=== PATIENT | female | born 1945 | race Asian ===

== ENCOUNTER 2017-09-13 07:46 | Emergency (ER) | payer OTHER ==
[2017-09-13 08:50] VITALS: BMI 22.2
[2017-09-13] MEDS ORDERED: ACETAMINOPHEN 1000 MG/100 ML VIAL (NON FORMULARY) IVPB ONE (10:02)
[2017-09-13] MEDS ORDERED: MAG HYDROX/AL HYDROX/SIMETH 30 ML UNIT-DOSE CUP PO ONE (10:02)
[2017-09-13] MEDS ORDERED: ONDANSETRON 4 MG/2 ML VIAL IVPB ONE (10:02)
[2017-09-13] MEDS ORDERED: ALBUTEROL SO4 2.5/IPRATROPIUM 0.5 INH SOL 3 ML VIAL.NEB. NEB ONE ×2 (10:09→11:05)
--- NOTE | 2017-09-13 10:12 | PDOC ---
History of Present Illness <Nati Leach - Last Filed: 09/13/17 17:04> - History of Present Illness Initial Comments: 09/13/17 10:50 The patient is a 72 year old female, with a significant past medical history of asthma, who presents to the emergency department with diffuse bodyaches, cough, fevers, and abdominal pain for approximately 2 days. Patient reports her abdominal pain is diffuse, associated with several episodes of nausea and vomiting(nonbloody/nonbilious), but denies diarrhea or constipation. She reports chest burning and shortness of breath as well associated with coughing, but denies any diaphoresis or palpitations. Patient reports she has been taking Motrin and robitussin for her symptoms with minimal relief. She reports a fever , but denies any sore throat, ear ache, chills, headache, or dizziness. She denies any recent travel or sick contacts. Allergies: Penicillins Past Surgical History: Appendectomy Social History: Non smoker. No ETOH or recreational drug use. <Joseph Galindo - Last Filed: 09/13/17 17:18> - General Chief Complaint: Cold Symptoms Stated Complaint: FLU LIKE SYMPTOMS Time Seen by Provider: 09/13/17 09:11 Past History <Nati Leach - Last Filed: 09/13/17 17:04> - Past Medical History COPD: No HTN: Yes - Suicide/Smoking/Psychosocial Hx Smoking History: Never smoked Have you smoked in the past 12 months: No Information on smoking cessation initiated: No Hx Alcohol Use: No Drug/Substance Use Hx: No Substance Use Type: None <Joseph Galindo - Last Filed: 09/13/17 17:18> - Past Medical History Allergies/Adverse Reactions: Allergies Allergy/AdvReac Type Severity Reaction Status Date / Time No Known Allergies Allergy Verified 09/13/17 08:42 Home Medications: Ambulatory Orders Oseltamivir Phosphate 75 mg PO BID #10 capsule 09/13/17 Oseltamivir Phosphate [Tamiflu] 75 mg PO BID #10 capsule 09/13/17 Oseltamivir Phosphate [Tamiflu] 75 mg PO BID #10 capsule 09/13/17 Review of Systems - Review of Systems Comments:: 09/13/17 10:56 "GENERAL/CONSTITUTIONAL: Yes fever. No chills. No weakness. HEAD, EYES, EARS, NOSE AND THROAT: No change in vision. No ear pain or discharge. No sore throat. CARDIOVASCULAR: Yes chest burning. No chest pain or shortness of breath. RESPIRATORY: Yes cough. No wheezing, or hemoptysis. GASTROINTESTINAL: Yes abdominal pain, nausea, vomiting. No diarrhea or constipation. GENITOURINARY: No dysuria, frequency, or change in urination. MUSCULOSKELETAL: Yes diffuse joint pain. No muscle swelling or pain. No neck or back pain. SKIN: No rash NEUROLOGIC: No headache, vertigo, loss of consciousness, or change in strength/ sensation. ENDOCRINE: No increased thirst. No abnormal weight change. HEMATOLOGIC/LYMPHATIC: No anemia, easy bleeding, or history of blood clots. ALLERGIC/IMMUNOLOGIC: No hives or skin allergy." <Joseph Galindo - Last Filed: 09/13/17 17:18> *Physical Exam - Vital Signs Last Vital Signs Temp Pulse Resp BP Pulse Ox 101.4 F H 84 18 130/66 95 09/13/17 07:46 09/13/17 07:46 09/13/17 07:46 09/13/17 07:46 09/13/17 07:46 <Nati Leach - Last Filed: 09/13/17 17:04> - Vital Signs Last Vital Signs Temp Pulse Resp BP Pulse Ox 101.4 F H 84 18 130/66 95 09/13/17 07:46 09/13/17 07:46 09/13/17 07:46 09/13/17 07:46 09/13/17 07:46 - Physical Exam Comments: 09/13/17 10:56 "GENERAL: Febrile. Awake, alert, and fully oriented, in no acute distress HEAD: No signs of trauma EYES: PERRLA, EOMI, sclera anicteric, conjunctiva clear ENT: Auricles normal inspection, hearing grossly normal, nares patent, oropharynx clear without exudates. Moist mucosa NECK: Nontender, no stepoffs, Normal ROM, supple, no lymphadenopathy, JVD, or masses LUNGS: Diffuse wheezing bilaterally. No crackles HEART: Regular rate and rhythm, normal S1 and S2, no murmurs, rubs or gallops ABDOMEN: Diffuse abdominal tenderness. Soft, normoactive bowel sounds, non distended. No guarding, no rebound. No masses EXTREMITIES: Normal range of motion, no edema. No clubbing or cyanosis. No cords, erythema, or tenderness NEUROLOGICAL: Cranial nerves II through XII intact. 5/5 strength and sensation in all extremities, Normal speech, normal gait SKIN: Warm, Dry, normal turgor, no rashes or lesions noted." <Joseph Galindo - Last Filed: 09/13/17 17:18> ED Treatment Course - LABORATORY CBC & Chemistry Diagram: 09/13/17 11:18 09/13/17 11:18 - RADIOLOGY Radiograph Interpretation: 09/13/17 11:04 EXAM: CXR INTERPRETED BY: Dr. Antoine REVIEWED BY: Dr. Galindo IMPRESSION: Bilateral apical pleural thickening with extensive granulomatous changes in upper lobes. No pneumothorax or pleural effusion seen. No evidence of pulmonary consolidations. . EXAM: CT Abdomen and Pelvis INTERPRETED BY: Dr. Miles REVIEWED BY: Dr. Galindo IMPRESSION: A very small amount of free fluid is seen within the left paracolic space at the level of the upper pelvis. A mildly dilated fluid-filled tubular structure seen within the right lower quadrant in the expected region of the appendix. No definite associated acute inflammatory changes are noted. This finding may represent chronic mild distention of the appendiceal lumen (mucocele ) versus chronic appendicitis or partially treated acute/subacute appendicitis. Correlate clinically. 3 mm nonobstructing left renal calculus. A 0.8 cm left renal cortical hypodense focus is seen probably representing a complex benign cyst on a statistical basis. Correlation with 3 month follow-up CT or MRI is essential to document stability and lack of developing pathology. A 6 cm uterine spherical lesion is noted probably representing a degenerated leiomyoma. Findings are seen within the partially imaged lower chest as discussed above. <Nati Leach - Last Filed: 09/13/17 17:04> - LABORATORY CBC & Chemistry Diagram: 09/13/17 11:18 09/13/17 11:18 - RADIOLOGY Radiology Studies Ordered: Category Date Time Status ABDOMEN & PELVIS CT WITH CONTR [CT] Stat CT Scan 09/13/17 10:04 Ordered CHEST PA & LAT [RAD] Stat Radiology 09/13/17 10:03 Ordered <Joseph Galindo - Last Filed: 09/13/17 17:18> Medical Decision Making - Medical Decision Making 09/13/17 10:09 72 F with fever, cough, chest burning, abdominal pain, vomiting. Exam notable for wheezing and diffuse abdominal tenderness. Possible influenza with secondary asthma flare. However, given pt's age and abdominal tenderness, will need CT to r/o acute intra-abdominal process. Pt's chest burning likely 2/2 vomiting. Will obtain EKG and trop to r/o ACS. - Labs, cultures - CXR - CT abd/pelvis - Flu swab - IVF, tylenol - Nebs 09/13/17 12:14 Pt influenza positive. Given duration of symptoms for <2 days, will initiate tamiflu. 09/13/17 16:40 [address] discussion [address] Miles, CTAP appears unremarkable. Pt reassessed - now feels much better. Repeat vitals wnl. Pt clinically stable for DC at this time. 09/13/17 17:[address] shows trace free fluid and tubular structure in RLQ - per convo with Dr. Miles, this is nonspecific. I spoke with the pt, who states that her appendix was taken out decades ago. Pt states that her pain has improved significantly. Abdominal exam at this time benign. Pt instructed to follow up with her primary doctor for repeat examination and possible repeat imaging. <Joseph Galindo - Last Filed: 09/13/17 17:18> *DC/Admit/Observation/Transfer - Attestations Scribe Attestion: 09/13/17 11:04 Documentation prepared by Nati Leach, acting as ophthalmic medical assistant for Joseph Galindo MD. <Nati Leach - Last Filed: 09/13/17 17:04> - Attestations Physician Attestion: 09/13/17 16:44 I, Dr. Joseph Galindo MD, attest that this document has been prepared under my direction and personally reviewed by me in its entirety. I further attest, that it accurately reflects all work, treatment, procedures and medical decision -making performed by me. <Joseph Galindo - Last Filed: 09/13/17 17:18> Diagnosis at time of Disposition: Influenza - Discharge Dispostion Disposition: HOME - Prescriptions Prescriptions: Oseltamivir Phosphate 75 mg PO BID #10 capsule Oseltamivir Phosphate [Tamiflu] 75 mg PO BID #10 capsule Oseltamivir Phosphate [Tamiflu] 75 mg PO BID #10 capsule - Referrals Referrals: STAFF,NOT ON [Primary Care Provider] - - Patient Instructions Printed Discharge Instructions: DI for Influenza -- Adult Additional Instructions: You have the flu. Drink plenty of fluids to stay hydrated. Take the tamiflu as prescribed to reduce the length of your illness. Your CT scan today showed a few abnormalities that need to be followed up. You must see your primary care doctor within 1 week for a re-evaluation and possible repeat imaging. If you experience worsening abdominal pain, vomiting, high or persistent fevers , or any other concerning symptoms, return to the ER immediately. Print Language: Japanese - Post Discharge Activity
[2017-09-13] MEDS ORDERED: MAG HYDROX/AL HYDROX/SIMETH 30 ML UNIT-DOSE CUP ONE ×2 (11:05→11:06)
[2017-09-13] MEDS ORDERED: ACETAMINOPHEN INJECTION 100 ML IVPB ONE (11:05)
[2017-09-13] MEDS ORDERED: ONDANSETRON 4 MG/2 ML VIAL ONE ×2 (11:05→12:22)
[2017-09-13] MEDS ORDERED: FAMOTIDINE 20 MG/50 ML IVPB 20 MG/50 ML MG IVPB ONE ×2 (11:44→11:45)
[2017-09-13 11:47] LABS: VENOUS PC02 51.3 mmHg (38-52); VENOUS PH 7.43 (7.32-7.42)
[2017-09-13 12:08] LABS: ALBUMIN 3.2 g/dl (3.4-5.0); ANION GAP 8 (8-16); BILIRUBIN,TOTAL 0.5 mg/dL (0.2-1.0); BLOOD UREA NITROGEN 13 mg/dL (7-18); CALCIUM 8.1 mg/dL (8.5-10.1); CHLORIDE 92 mmol/L (98-107); CO2 31 mmol/L (21-32); CREATININE 0.7 mg/dL (0.55-1.02); GLUCOSE,RANDOM 125 mg/dL (74-106); SGOT/AST 33 U/L (15-37); SGPT/ALT 19 U/L (12-78); SODIUM 131 mmol/L (136-145); TOT PROT 7.2 g/dl (6.4-8.2)
[2017-09-13 12:10] LABS: BASO % 0.2 % (0-2.0); HEMATOCRIT 39.2 % (32.4-45.2); HEMOGLOBIN 12.7 GM/dL (10.7-15.3); LYMPH % 6.2 % (8-40); MCH 28.6 pg (25.7-33.7); MCHC 32.3 g/dl (32.0-36.0); MEAN CELL VOLUME 88.4 fl (80-96); MONO % 4.8 % (3.8-10.2); NEUT % 88.8 % (42.8-82.8); PLATELET COUNT 112 K/MM3 (134-434); RBC 4.43 M/mm3 (3.60-5.2); RDW 13.3 % (11.6-15.6); WHITE BLOOD COUNT 7.1 K/mm3 (4.0-10.0)
[2017-09-13 12:11] LABS: ALK PHOS 44 U/L (45-117)
[2017-09-13] MEDS ORDERED: OSELTAMIVIR PHOSPHATE 75 MG CAPSULE PO ONE (12:13)
[2017-09-13] MEDS ORDERED: ONDANSETRON 4 MG/2 ML VIAL IVPUSH ONE (12:21)
[2017-09-13] MEDS ORDERED: OSELTAMIVIR PHOSPHATE 75 MG CAPSULE ONE (12:22)
[2017-09-13 12:46] LABS: INR 1.04 (0.82-1.09); PROTHROMBIN TIME (PATIENT) 11.7 SEC (9.98-11.88)
[2017-09-13 12:49] LABS: ACTIVATED PTT 30.9 SECONDS (26.9-34.4)
[2017-09-13 13:50] LABS: URINE APPEARANCE CLEAR; URINE BILIRUBIN NEGATIVE (NEGATIVE); URINE BLOOD NEGATIVE (NEGATIVE); URINE COLOR LTYELLOW; URINE GLUCOSE (UA) NEGATIVE (NEGATIVE); URINE KETONE 1+ (NEGATIVE); URINE LEUK ESTERASE NEGATIVE (NEGATIVE); URINE NITRITE NEGATIVE (NEGATIVE); URINE PROTEIN NEGATIVE (NEGATIVE)
--- NOTE | 2017-09-13 15:07 | EKG ---
Test Reason : Blood Pressure : / mmHG Vent. Rate : 084 BPM Atrial Rate : 084 BPM P-R Int : 156 ms QRS Dur : 098 ms QT Int : 406 ms P-R-T Axes : 078 066 061 degrees QTc Int : 479 ms NORMAL SINUS RHYTHM NORMAL ECG NO PREVIOUS ECGS AVAILABLE Confirmed by ABDIAZIZ BAPTISTE, AUBRIE ([id number]) on 09/13/2017 3:07:26 PM Referred By: Confirmed By:AUBRIE FREED MD
[2017-09-13 17:21] VITALS: TEMP 99.2
[2017-09-13 17:25] VITALS: BP 129/60; PULSE 72
== END 2017-09-13 17:28 | disposition home or self-care (01) ==
LOC: JER 07:46
PROC: 3E033NZ Introduction of Analgesics, Hypnotics, Sedatives into Peripheral Vein, Percutaneous Approach (ICD-10-PCS; principal; 2017-09-13)
PROC: 3E0F7GC Introduction of Other Therapeutic Substance into Respiratory Tract, Via Natural or Artificial Opening (ICD-10-PCS; 2017-09-13)
PROC: 3E033GC Introduction of Other Therapeutic Substance into Peripheral Vein, Percutaneous Approach (ICD-10-PCS; 2017-09-13)
DX: J11.1 Influenza due to unidentified influenza virus with other respiratory manifestations (principal); J45.909 Unspecified asthma, uncomplicated; I10 Essential (primary) hypertension
CPT/HCPCS: 36415; 71046-TC; 74177-TC; 80053; 81003; 82550; 82803; 83605; 84484; 85025; 85610; 85730; 86850; 86900; 86901; 87040; 87086; 87804; 93005; 93010; 94640; 96365; 96375; 96376; 99285-25

== ENCOUNTER 2017-09-14 15:35 | Emergency (ER) | payer OTHER ==
[2017-09-14 15:48] VITALS: BP 134/75; PULSE 71; TEMP 98.9; BMI 27.3
[2017-09-14] MEDS ORDERED: ALBUTEROL SO4 2.5/IPRATROPIUM 0.5 INH SOL 3 ML VIAL.NEB. NEB ONE ×2 (15:49→16:08)
[2017-09-14] MEDS ORDERED: ACETAMINOPHEN 325 MG TABLET (FP) PO ONE (15:49)
--- NOTE | 2017-09-14 15:50 | PDOC ---
Rapid Medical Evaluation Time Seen by Provider: 09/14/17 15:43 Medical Evaluation: Allergies Allergy/AdvReac Type Severity Reaction Status Date / Time No Known Allergies Allergy Verified 09/14/17 15:48 Vital Signs Temp Pulse Resp BP Pulse Ox 98.9 F 71 19 134/75 96 09/14/17 15:46 09/14/17 15:46 09/14/17 15:46 09/14/17 15:46 09/14/17 15:46 09/14/17 15:48 The patient presents with a chief complaint of: Generalized body aches. In our ED yesterday, diagnosed with Flu. Taking Tamiflu I have performed a brief in-person evaluation of this patient; Pertinent physical exam findings: Course lung sounds b/l; afebrile I have ordered the following: CXR, duoneb, tylenol The patient will proceed to the ED for further evaluation.
[2017-09-14] MEDS ORDERED: ACETAMINOPHEN 325 MG TABLET (FP) ONE (16:08)
--- NOTE | 2017-09-14 16:53 | PDOC ---
History of Present Illness - General Chief Complaint: Respiratory Stated Complaint: FLU LIKE SYMPTOMS Time Seen by Provider: 09/14/17 15:43 History Source: Patient Exam Limitations: No Limitations - History of Present Illness Initial Comments: 09/14/17 16:31 Patient return to emergency department with continued complaints of body aches, cough, general malaise, and fevers. Has not taken any medication for any resolve of symptoms and was unable to receive her Tamiflu until today at 1:00. Patient wants to know why she cannot be admitted to the hospital. Discussed patient's symptoms with son who well explained to father and mother the fact that patient has not proceeded with any of the discharge planned to help resolve her illness, her vital signs are not unstable, and she is currently afebrile Timing/Duration: reports: constant Severity: reports: moderate Associated Symptoms: reports: chest pain/soreness, fever/chills, nasal congestion Past History - Travel Traveled outside of the country in the last 30 days: No Close contact w/someone who was outside of country & ill: No - Past Medical History Allergies/Adverse Reactions: Allergies Allergy/AdvReac Type Severity Reaction Status Date / Time No Known Allergies Allergy Verified 09/14/17 15:48 Home Medications: Ambulatory Orders Oseltamivir Phosphate 75 mg PO BID #10 capsule 09/13/17 Oseltamivir Phosphate [Tamiflu] 75 mg PO BID #10 capsule 09/13/17 Oseltamivir Phosphate [Tamiflu] 75 mg PO BID #10 capsule 09/13/17 Albuterol Sulfate Inhaler - [Ventolin HFA Inhaler -] 1 - 2 inh PO Q4H #1 inhaler 09/14/17 Ondansetron [Zofran *Odt*] 4 mg SL PRN PRN #14 od.tablet 09/14/17 COPD: No HTN: Yes - Immunization History Immunization Up to Date: Yes - Suicide/Smoking/Psychosocial Hx Smoking History: Never smoked Have you smoked in the past 12 months: No Information on smoking cessation initiated: No Hx Alcohol Use: No Drug/Substance Use Hx: No Substance Use Type: None Review of Systems - Review of Systems Able to Perform ROS?: Yes Is the patient limited Slovak proficient: Yes Constitutional: Yes: Symptoms Reported, See HPI, Loss of Appetite, Malaise HEENTM: Yes: Symptoms Reported, See HPI, Nose Congestion, Throat Pain Respiratory: Yes: Symptoms reported, See HPI, Cough, Wheezing ABD/GI: Yes: See HPI, Nausea, Vomiting. No: Symptoms Reported Musculoskeletal: Yes: Symptoms Reported, See HPI, Muscle Pain, Muscle Weakness Integumentary: No: Symptoms Reported Neurological: Yes: Symptoms reported, See HPI, Headache All Other Systems: Reviewed and Negative *Physical Exam - Vital Signs Last Vital Signs Temp Pulse Resp BP Pulse Ox 98.9 F 71 19 134/75 96 09/14/17 15:46 09/14/17 15:46 09/14/17 15:46 09/14/17 15:46 09/14/17 15:46 - Physical Exam General Appearance: Yes: Nourished, Appropriately Dressed, Apparent Distress, Mild Distress, Moderate Distress HEENT: positive: SMITHA (glassy ), TMs Normal, Pharynx Normal, Rhinorrhea Neck: positive: Supple. negative: Tender, Lymphadenopathy (R) Respiratory/Chest: positive: Wheezing (bilaterally with moist upper airway rhonchi). negative: Chest Tender, Lungs Clear, Normal Breath Sounds, Labored Respiration Gastrointestinal/Abdominal: positive: Normal Bowel Sounds, Soft. negative: Tender Musculoskeletal: positive: Normal Inspection. negative: CVA Tenderness Extremity: positive: Normal Capillary Refill, Normal Inspection, Normal Range of Motion Integumentary: positive: Dry, Warm, Pale Neurologic: positive: personal caregiver II-XII NML intact, Fully Oriented, Alert, Normal Mood/ Affect, Normal Response, Motor Strength 5/5 Progress Note - Progress Note Progress Note: Past patient's status with and son on the telephone. Understands as patient has taken no medication for relief of any symptoms that is understandable that she states continues to feel malaise sick with body aches, fatigue, and the moist cough. Dr. Galindo whou cared for patient yesterday evaluated patient who reports that in fact looks minimally better than yesterday. Planned for discharged and will add Proventil pump, Zofran for nauseousness and encourage rest, fluids and continuation of antipyretics and Tamiflu. Was repeated to son and medications sent to [facility] where is open later. Medical Decision Making - Medical Decision Making 09/14/17 17:10 1 DuoNeb, Tylenol, patient reports feeling mildly better and breath sounds improved. Understands plan for discharge, and will continue. Also understands to return to emergency department if symptoms persist or worsen. *DC/Admit/Observation/Transfer Diagnosis at time of Disposition: Influenza A - Discharge Dispostion Disposition: HOME Condition at time of disposition: Stable Admit: No - Referrals Referrals: STAFF,NOT ON [Primary Care Provider] - - Patient Instructions Printed Discharge Instructions: Oseltamivir, DI for Influenza -- Adult Additional Instructions: Rest, drink lots of fluids: Teas, water, soups, Pedialyte Saltwater gargles Steamy showers/seem to face break up mucus Old-fashioned treatments help! Avoid contact with others until fevers and cough resolved as this is very contagious Lots of handwashing and good hygiene Continue ngoe-nbq-meliwdi medications for symptomatic relief- NyQuil, DayQuil, TheraFlu or other [id number] medicines Tylenol or Motrin for fever and pain as needed Albuterol pumps 2 puffs 4 times a day for 2 days then as needed for continued cough Take all of Tamiflu as directed: 1 tab every 12 hours for 5 days Take one tablet of Zofran for nauseousness and vomiting, may repeat every 8 hours as needed Followup with private physician in one to 2 days as needed or if worsening Return to emergency department for worsened symptoms, fevers, dehydration Influenza takes between 5 and 7 days for resolution To not participate in any activity, work, or school until fevers and cough are gone for at least one day Print Language: Frisian - Post Discharge Activity
== END 2017-09-14 17:17 | disposition home or self-care (01) ==
LOC: JERFT 15:35
PROC: 3E0F7GC Introduction of Other Therapeutic Substance into Respiratory Tract, Via Natural or Artificial Opening (ICD-10-PCS; principal; 2017-09-14)
DX: J09.X2 Influenza due to identified novel influenza A virus with other respiratory manifestations (principal); R11.2 Nausea with vomiting, unspecified
CPT/HCPCS: 99281-25

== ENCOUNTER 2019-09-01 19:53 | Inpatient (IN) | payer OTHER ==
--- NOTE | 2019-09-01 20:11 | PDOC ---
History of Present Illness - General Stated Complaint: BOWEL AND URINARY PROBLEM Time Seen by Provider: 09/01/19 20:09 - History of Present Illness Initial Comments: 09/01/19 21:45 74 year woman with a history of asthma, HTN, DM and prior appendectomy who presents with 2 days of lower abdominal pain, inability to have a bowel movement and small amount of urine passage. The patient has only been able to drink water and vomits it back up. She is passing gas actively at bedside. She denies any fevers, chest pain, shortness of breath, recent illness or any other symptoms. The patient states that her abdominal pain started before her inability to have a BM. She has no other complaints at bedside. ROS GENERAL/CONSTITUTIONAL: No fever or chills. No weakness. HEAD, EYES, EARS, NOSE AND THROAT: No sore throat. CARDIOVASCULAR: No chest pain or shortness of breath RESPIRATORY: No cough, wheezing, or hemoptysis. GASTROINTESTINAL: + nausea, vomiting, diarrhea, + constipation. GENITOURINARY: No dysuria, frequency, + change in urination. MUSCULOSKELETAL: No joint or muscle swelling or pain. No neck or back pain. SKIN: No rash NEUROLOGIC: No headache, vertigo, loss of consciousness, or change in strength/ sensation. Initial Vital Signs Temp Pulse Resp BP Pulse Ox 99.9 F H 66 18 118/56 L 97 09/01/19 20:09 09/01/19 20:09 09/01/19 20:09 09/01/19 20:09 09/01/19 20:09 PE GENERAL: Awake, alert, and fully oriented, uncomfortable appearing HEAD: No signs of trauma, normocephalic, atraumatic EYES: EOMI, sclera anicteric, conjunctiva clear ENT: oropharynx clear without exudates. Moist mucosa NECK: Normal ROM, supple LUNGS: No distress, speaks full sentences, coarse breath sounds bilaterally HEART: Regular rate and rhythm, normal S1 and S2, no murmurs, rubs or gallops, peripheral pulses normal and equal bilaterally. ABDOMEN: Soft, + BLQ abdominal tenderness. R sided surgical scar No guarding, no rebound. No masses EXTREMITIES : Normal inspection, Normal range of motion, no edema. No clubbing or cyanosis. NEUROLOGICAL: Cranial nerves II through XII grossly intact. Normal speech, normal gait no focal sensorimotor deficits SKIN: Warm, Dry, normal turgor, no rashes or lesions noted MDM DDX including but not limited to: SBO vs constipation with 2/2 urinary retention sepsis w/ tachycardia and rectal temp of 100.4 consider pulm vs urine source vs GI ED Course: EKG: nsr @ 71bpm, no ST segment changes CBCD WBC 4.8 K/mm3 (4.0-10.0) 09/01/19 21:30 RBC 4.17 M/mm3 (3.60-5.2) 09/01/19 21:30 Hgb 12.1 GM/dL (10.7-15.3) 09/01/19 21: Hct 36.8 % (32.4-45.2) 09/01/19 21: MCV 88.2 fl (80-96) 09/01/19 21:30 MCHC 32.9 g/dl (32.0-36.0) 09/01/19 21: RDW 15.0 % (11.6-15.6) D 09/01/19 21:30 Plt Count 96 K/MM3 (134-434) L 09/01/19 21:30 MPV 8.9 fl (7.5-11.1) 09/01/19 21:30 CMP Sodium 136 mmol/L (136-145) 09/01/19 21:30 Potassium 3.1 mmol/L (3.5-5.1) L 09/01/19 21:30 Chloride 99 mmol/L (98-107) 09/01/19 21: Carbon Dioxide 30 mmol/L (21-32) 09/01/19 21:30 Anion Gap 7 MMOL/L (8-16) L 09/01/19 21:30 BUN 26.8 mg/dL (7-18) H 09/01/19 21:30 Creatinine 1.1 mg/dL (0.55-1.3) 09/01/19 21:30 Calcium 7.9 mg/dL (8.5-10.1) L 09/01/19 21:30 Total Bilirubin 0.7 mg/dL (0.2-1) 09/01/19 21:30 AST 34 U/L (15-37) 09/01/19 21:30 ALT 23 U/L (13-61) 09/01/19 21:30 Alkaline Phosphatase 45 U/L (45-117) 09/01/19 21:30 Total Protein 7.0 g/dl (6.4-8.2) 09/01/19 21:30 Albumin 3.4 g/dl (3.4-5.0) 09/01/19 21:30 labs with hypokalemia Patient already getting LR urine wnl CT with dilation of pancreatic duct, cbd, common hepatic duct will need admission for MRCP Yumi Dominguez PGY2 Emergency Medicine 09/02/19 00:17 Past History - Past Medical History Allergies/Adverse Reactions: Allergies Allergy/AdvReac Type Severity Reaction Status Date / Time No Known Allergies Allergy Verified 09/14/17 15:48 Home Medications: Ambulatory Orders Oseltamivir Phosphate 75 mg PO BID #10 capsule 09/13/17 Oseltamivir Phosphate [Tamiflu] 75 mg PO BID #10 capsule 09/13/17 Oseltamivir Phosphate [Tamiflu] 75 mg PO BID #10 capsule 09/13/17 Albuterol Sulfate Inhaler - [Ventolin HFA Inhaler -] 1 - 2 inh PO Q4H #1 inhaler 09/14/17 Ondansetron [Zofran *Odt*] 4 mg SL PRN PRN #14 od.tablet 09/14/17 COPD: No HTN: Yes - Immunization History Immunization Up to Date: Yes - Psycho Social/Smoking Cessation Hx Smoking History: Never smoked Have you smoked in the past 12 months: No Hx Alcohol Use: No Drug/Substance Use Hx: No Substance Use Type: None Vital Signs - Vital Signs #3 Temperature: 96.7 F Temperature Source: Oral ED Treatment Course - LABORATORY CBC & Chemistry Diagram: 09/01/19 21:30 09/01/19 21:30
[2019-09-01] MEDS ORDERED: ACETAMINOPHEN 1000 MG/100 ML VIAL (NON FORMULARY) IVPB ONE (20:24)
[2019-09-01] MEDS ORDERED: LACTATED RINGERS SOLUTION 1,000 ML/1,000 ML INFUS.BAG IV SCH (20:30)
--- NOTE | 2019-09-01 21:28 | PDOC ---
Attending Attestation - Resident Resident Name: Yumi Dominguez - ED Attending Attestation I have performed the following: I have examined & evaluated the patient, The case was reviewed & discussed with the resident, I agree w/resident's findings & plan - HPI HPI: 09/01/19 21:27 see resident hpi - Physicial Exam PE: 09/01/19 21:27 agree with resident exam - Medical Decision Making 09/01/19 21:27 74-year-old female with abdominal pain and difficulty urinating Plan for labs including urinalysis as well as CT scan of the abdomen and pelvis to rule out obstruction Sepsis labs IV fluids, antibiotics as needed
[2019-09-01 21:32] LABS: EPI CELLS 2.7 /HPF (0-5/HPF); HYALINE CASTS 7 /lpf (0-8); PH,URINE 5.5 (5.0-8.0); URINE APPEARANCE CLEAR; URINE BACTERIA 22.9 /hpf (NEGATIVE); URINE BILIRUBIN NEGATIVE (NEGATIVE); URINE COLOR DK YELLOW; URINE GLUCOSE (UA) NEGATIVE (NEGATIVE); URINE KETONE NEGATIVE (NEGATIVE); URINE LEUK ESTERASE NEGATIVE (NEGATIVE); URINE NITRITE NEGATIVE (NEGATIVE); URINE PROTEIN 1+ (NEGATIVE); URINE RBC 3 /hpf (0-4); URINE WBC 2 /hpf (0-5)
[2019-09-01] MEDS ORDERED: ACETAMINOPHEN INJECTION 100 ML IVPB ONE (21:45)
[2019-09-01 21:55] LABS: BASO % 0.3 % (0-2.0); HEMATOCRIT 36.8 % (32.4-45.2); HEMOGLOBIN 12.1 GM/dL (10.7-15.3); LYMPH % 10.2 % (8-40); MCHC 32.9 g/dl (32.0-36.0); MEAN CELL VOLUME 88.2 fl (80-96); MEAN PLT VOLUME 8.9 fl (7.5-11.1); MONO % 7.1 % (3.8-10.2); NEUT % 82.4 % (42.8-82.8); PLATELET COUNT 96 K/MM3 (134-434); RBC 4.17 M/mm3 (3.60-5.2); WHITE BLOOD COUNT 4.8 K/mm3 (4.0-10.0)
[2019-09-01 22:16] LABS: ALBUMIN 3.4 g/dl (3.4-5.0); BILIRUBIN,TOTAL 0.7 mg/dL (0.2-1); BLOOD UREA NITROGEN 26.8 mg/dL (7-18); CALCIUM 7.9 mg/dL (8.5-10.1); CREATININE 1.1 mg/dL (0.55-1.3); POTASSIUM 3.1 mmol/L (3.5-5.1)
[2019-09-02] MEDS ORDERED: ACETAMINOPHEN 325 MG TABLET (FP) PO PRN (03:39)
--- NOTE | 2019-09-02 03:49 | HP ---
CHIEF COMPLAINT: inability to urinate and defecate PCP: Dr Henriquez HISTORY OF PRESENT ILLNESS: 74 Y/O F with a PMH of asthma, HTN, DM, uterine fibroids presented to the ED after 2 days of abdominal discomfort, constipation, urinary frequency with decreased urinary output. History was obtained via Arabic liquefaction and regasification helper, Alvarez, ID : [id number]. Ms. Calderon started having urinary frequency and decreased output approximately 4 to 5 days ago. Then she began having abdominal pressure and constipation 2 days ago associated with nausea and NBNB vomiting. She denies fever, SOB, chest pain, dietary changes, weight loss, dysuria, diarrhea. She was told many years ago about uterine fibroids however she never followed up as she was informed that it might decrease in size post menopausal. ER course was notable for: (1) CBC remarkable for platelets of 96, CMP with hypokalemia 3.1, UA neg (2) EKG NSR, LR bolus and orfimev (3) CT a/p pending official read but with evidence of large uterine mass, bladder and rectal distension, multiple renal and pancreatic cyst, dilation of common hepatic and CBD at 1.2 cm with mild pancreatic duct dilation. lung with honeycombing, mild atelectasis, pleural and pulmonary parenchymal scarring at bases. Recent Travel: none PAST MEDICAL HISTORY: as above PAST SURGICAL HISTORY: appendectomy FAMILY HISTORY: no fam hx of cancer Social History: Smoking: denies Alcohol: denies Drugs: denies Allergies No Known Allergies Allergy (Verified 09/14/17 15:48) HOME MEDICATIONS: Home Medications Medication Instructions Recorded Oseltamivir Phosphate 75 mg PO BID #10 capsule 09/13/17 Oseltamivir Phosphate [Tamiflu] 75 mg PO BID #10 capsule 09/13/17 Oseltamivir Phosphate [Tamiflu] 75 mg PO BID #10 capsule 09/13/17 Albuterol Sulfate Inhaler - 1 - 2 inh PO Q4H #1 inhaler 09/14/17 [Ventolin HFA Inhaler -] Ondansetron [Zofran *Odt*] 4 mg SL PRN PRN #14 od.tablet 09/14/17 REVIEW OF SYSTEMS CONSTITUTIONAL: chills,malaise Absent: fever, diaphoresis, generalized weakness, loss of appetite, weight change HEENT: Absent: rhinorrhea, nasal congestion, throat pain, throat swelling, difficulty swallowing, mouth swelling, ear pain, eye pain, visual changes CARDIOVASCULAR: Absent: chest pain, syncope, palpitations, irregular heart rate, lightheadedness , peripheral edema RESPIRATORY: Absent: cough, shortness of breath, dyspnea with exertion, orthopnea, wheezing, stridor, hemoptysis GASTROINTESTINAL: abdominal discomfort, abdominal distension, nausea, vomiting Absent: diarrhea, constipation, melena, hematochezia GENITOURINARY: frequency, hesitancy Absent: dysuria,, urgency, hematuria, flank pain, genital pain MUSCULOSKELETAL: Absent: myalgia, arthralgia, joint swelling, back pain, neck pain SKIN: Absent: rash, itching, pallor HEMATOLOGIC/IMMUNOLOGIC: Absent: easy bleeding, easy bruising, lymphadenopathy, frequent infections ENDOCRINE: Absent: unexplained weight gain, unexplained weight loss, heat intolerance, cold intolerance NEUROLOGIC: Absent: headache, focal weakness or paresthesias, dizziness, unsteady gait, seizure, mental status changes, bladder or bowel incontinence PSYCHIATRIC: Absent: anxiety, depression, suicidal or homicidal ideation, hallucinations. PHYSICAL EXAMINATION Vital Signs - 24 hr 09/01/19 09/01/19 09/02/19 20:09 20:45 00:42 Temperature 99.9 F H 100.3 F H Temperature [#3 96.7 F L ] Pulse Rate 66 Pulse Rate [ Left Radial] Respiratory 18 Rate Blood Pressure 118/56 L Blood Pressure [Left Arm] O2 Sat by Pulse 97 Oximetry (%) 09/02/19 03:30 Temperature Temperature [#3 ] Pulse Rate Pulse Rate [ 59 L Left Radial] Respiratory 18 Rate Blood Pressure Blood Pressure 120/66 [Left Arm] O2 Sat by Pulse 91 L Oximetry (%) GENERAL: Awake, alert, and fully oriented, in mod distress. HEAD: Normal with no signs of trauma. EYES: Pupils equal, round and reactive to light, extraocular movements intact, sclera anicteric, conjunctiva clear. No lid lag. EARS, NOSE, THROAT: oropharynx clear without exudates. Moist mucous membranes. NECK: Normal range of motion, supple without lymphadenopathy, JVD, or masses. LUNGS: Breath sounds equal, clear to auscultation bilaterally. diffuse end expiratory wheezing and dry crackles. HEART: Regular rate and rhythm, normal S1 and S2 without murmur, rub or gallop. ABDOMEN: Soft, lower abdominal tenderness, distended, hyperactive bowel sounds, no guarding, no rebound, no masses. No hepatomegaly or splenomegaly. MUSCULOSKELETAL: Normal range of motion at all joints. No bony deformities or tenderness. No CVA tenderness. UPPER EXTREMITIES: 2+ pulses, warm, well-perfused. No cyanosis. No clubbing. No peripheral edema. LOWER EXTREMITIES: 2+ pulses, warm, well-perfused. No calf tenderness. No peripheral edema. PSYCHIATRIC: Cooperative. Good eye contact. Appropriate mood and affect. SKIN: Warm, dry, normal turgor, b/l palmar erythema which per pt is normal for her. Laboratory Results - last 24 hr 09/01/19 09/01/19 09/01/19 21:00 21:30 21:30 WBC 4.8 RBC 4.17 Hgb 12.1 Hct 36.8 MCV 88.2 MCH 29.0 MCHC 32.9 RDW 15.0 D Plt Count 96 L MPV 8.9 Absolute Neuts (auto) 3.9 Neutrophils % 82.4 Lymphocytes % 10.2 D Monocytes % 7.1 Eosinophils % 0.0 Basophils % 0.3 Nucleated RBC % 0 Sodium Potassium Chloride Carbon Dioxide Anion Gap BUN Creatinine Est GFR (CKD-EPI)AfAm Est GFR (CKD-EPI)NonAf Random Glucose Lactic Acid 1.2 Calcium Total Bilirubin AST ALT Alkaline Phosphatase Troponin I Total Protein Albumin Lipase Urine Color Dk yellow Urine Appearance Clear Urine pH 5.5 Ur Specific [place] 1.021 Urine Protein 1+ H Urine Glucose (UA) Negative Urine Ketones Negative Urine Blood Negative Urine Nitrite Negative Urine Bilirubin Negative Urine Urobilinogen 1.0 Ur Leukocyte Esterase Negative Urine WBC (Auto) 2 Urine RBC (Auto) 3 Urine Casts (Auto) 7 U Epithel Cells (Auto) 2.7 Urine Bacteria (Auto) 22.9 09/01/19 09/01/19 21:30 21:30 WBC RBC Hgb Hct MCV MCH MCHC RDW Plt Count MPV Absolute Neuts (auto) Neutrophils % Lymphocytes % Monocytes % Eosinophils % Basophils % Nucleated RBC % Sodium 136 Potassium 3.1 L Chloride 99 Carbon Dioxide 30 Anion Gap 7 L BUN 26.8 H Creatinine 1.1 Est GFR (CKD-EPI)AfAm 56.48 Est GFR (CKD-EPI)NonAf 48.73 Random Glucose 95 Lactic Acid Calcium 7.9 L Total Bilirubin 0.7 AST 34 ALT 23 Alkaline Phosphatase 45 Troponin I 0.02 Total Protein 7.0 Albumin 3.4 Lipase 79 Urine Color Urine Appearance Urine pH Ur Specific [place] Urine Protein Urine Glucose (UA) Urine Ketones Urine Blood Urine Nitrite Urine Bilirubin Urine Urobilinogen Ur Leukocyte Esterase Urine WBC (Auto) Urine RBC (Auto) Urine Casts (Auto) U Epithel Cells (Auto) Urine Bacteria (Auto) ASSESSMENT/PLAN: 74 Y/O F with a PMH of asthma, HTN, DM, uterine fibroids presented to the ED after 2 days of abdominal discomfort, constipation, urinary frequency with decreased urinary output Acute urinary retention and constipation poss due to large uterine mass associated with N/V actively passing gas despite no BM for 2 days No evidence of bowel obstruction on imaging NPO, bowel rest compazine 2.5mg Q4h for N/V NS @ 100 cc/hr for hydration Mineral oil enema for constipation Clement catheter for bladder decompression, drained 350 ml on insertion and still going Clinical Support Manager consult Dr Quach Uterine fibroid Clinical Support Manager Dr Quach consulted for recommendations Hypokalemia potassium 3.1 Replete potassium with 3 k run f/u morning CMP Thrombocytopenia Platelets 96 today, 112 in 09/2017 Monitor platelets with CBC 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 currently asx, w/o changes in LFTs Consider MRCP, GI evaluation monitor LFTs with chem7 Bilateral renal cortical cysts monitor as pt is asymptomatic Asthma & suspected interstitial lung disease CXR with interstial changes, prior hx of TB, 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 - New Patient This patient is new to me today: Yes Date on this admission: 09/02/19 - Critical Care Critical Care patient: No ATTENDING PHYSICIAN STATEMENT I saw and evaluated the patient. I reviewed the resident's note and discussed the case with the resident. I agree with the resident's findings and plan as documented. SUBJECTIVE: OBJECTIVE: ASSESSMENT AND PLAN:
--- NOTE | 2019-09-02 04:01 | PN ---
Teaching Attending Note Name of Resident: Zahida Cook ATTENDING PHYSICIAN STATEMENT I saw and evaluated the patient. I reviewed the resident's note and discussed the case with the resident. I agree with the resident's findings and plan as documented. SUBJECTIVE: This is a 74 year old woman with a history of HTN, asthma, appendectomy who comes to the ED complaining of lower abdominal pain x 2 days. Since the pain started, she has also developed constipation, vomiting, and difficulty urinating. OBJECTIVE: Vital Signs Period Temp Pulse Resp BP Sys/[place] Pulse Ox Last 24 Hr 96.7 F-100.3 F 66 18 118/56 97 HEART: S1S2, RRR LUNGS: Diffuse crackles ABDOMEN: Soft, non-distended, (+) LLQ/suprapubic/RLQ tenderness, (+) palpable distended urinary bladder, normal BS EXTREMITIES: No edema Laboratory Tests 09/01/19 09/01/19 09/01/19 21:00 21:30 21:30 WBC 4.8 RBC 4.17 Hgb 12.1 Hct 36.8 MCV 88.2 MCH 29.0 MCHC 32.9 RDW 15.0 D Plt Count 96 L MPV 8.9 Absolute Neuts (auto) 3.9 Neutrophils % 82.4 Lymphocytes % 10.2 D Monocytes % 7.1 Eosinophils % 0.0 Basophils % 0.3 Nucleated RBC % 0 Sodium Potassium Chloride Carbon Dioxide Anion Gap BUN Creatinine Est GFR (CKD-EPI)AfAm Est GFR (CKD-EPI)NonAf Random Glucose Lactic Acid 1.2 Calcium Total Bilirubin AST ALT Alkaline Phosphatase Troponin I Total Protein Albumin Lipase Urine Color Dk yellow Urine Appearance Clear Urine pH 5.5 Ur Specific [place] 1.021 Urine Protein 1+ H Urine Glucose (UA) Negative Urine Ketones Negative Urine Blood Negative Urine Nitrite Negative Urine Bilirubin Negative Urine Urobilinogen 1.0 Ur Leukocyte Esterase Negative Urine WBC (Auto) 2 Urine RBC (Auto) 3 Urine Casts (Auto) 7 U Epithel Cells (Auto) 2.7 Urine Bacteria (Auto) 22.9 09/01/19 09/01/19 21:30 21:30 WBC RBC Hgb Hct MCV MCH MCHC RDW Plt Count MPV Absolute Neuts (auto) Neutrophils % Lymphocytes % Monocytes % Eosinophils % Basophils % Nucleated RBC % Sodium 136 Potassium 3.1 L Chloride 99 Carbon Dioxide 30 Anion Gap 7 L BUN 26.8 H Creatinine 1.1 Est GFR (CKD-EPI)AfAm 56.48 Est GFR (CKD-EPI)NonAf 48.73 Random Glucose 95 Lactic Acid Calcium 7.9 L Total Bilirubin 0.7 AST 34 ALT 23 Alkaline Phosphatase 45 Troponin I 0.02 Total Protein 7.0 Albumin 3.4 Lipase 79 Urine Color Urine Appearance Urine pH Ur Specific [place] Urine Protein Urine Glucose (UA) Urine Ketones Urine Blood Urine Nitrite Urine Bilirubin Urine Urobilinogen Ur Leukocyte Esterase Urine WBC (Auto) Urine RBC (Auto) Urine Casts (Auto) U Epithel Cells (Auto) Urine Bacteria (Auto) Home Medications Medication Instructions Recorded Oseltamivir Phosphate 75 mg PO BID #10 capsule 09/13/17 Oseltamivir Phosphate [Tamiflu] 75 mg PO BID #10 capsule 09/13/17 Oseltamivir Phosphate [Tamiflu] 75 mg PO BID #10 capsule 09/13/17 Albuterol Sulfate Inhaler - 1 - 2 inh PO Q4H #1 inhaler 09/14/17 [Ventolin HFA Inhaler -] Ondansetron [Zofran *Odt*] 4 mg SL PRN PRN #14 od.tablet 09/14/17 CT A/P: Some honeycombing at the anterior base of the left lung lingula. There is a peribronchial cuffing seen in the left lower lobe bronchi. Mild bibasilar atelectasis and scarring. A few scattered diverticula seen along the ascending and descending colonic segments, without evidence of diverticulitis. Common hepatic and common bile duct dilatation measuring up to 1.2 cm in diameter. Several small pseudocysts noted within the pancreatic head and body. Mild pancreatic ductal dilatation. Benign renal cortical cysts within each kidney. This CT scan of the abdomen and pelvis appears otherwise unremarkable. ASSESSMENT AND PLAN: This is a 74 year old woman with a history of HTN, asthma, appendectomy who presented to the ED with abdominal pain, constipation, vomiting, and difficulty urinating. 1. Abdominal pain with vomiting - No evidence of bowel obstruction - Likely secondary to constipation/fecal retention - NPO - IV fluid - Mineral oil enema 2. Urinary retention - Likely secondary to fecal retention and large uterine fibroid - Clement catheter 3. Hypokalemia - Replete potassium 4. Dehydration - IV fluid - Monitor BUN, creatinine 5. Uterine fibroid - Purchasing Clerk evaluation 6. 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 - Consider MRCP, GI evaluation 7. Bilateral renal cortical cysts 8. Diverticulosis 9. Asthma, possible interstitial lung disease - Follow-up chest CT - Consider pulmonary consult 10. Thrombocytopenia - Platelets 96 today, 112 in 09/2017 - Monitor platelets 11. Stage 3 CKD vs acute kidney injury secondary to dehydration, obstructive uropathy - Monitor BUN, creatinine with hydration, Clement catheter
[2019-09-02] MEDS ORDERED: MINERAL OIL ENEMA 133 ML ENEMA PR ONE (04:11)
[2019-09-02] MEDS ORDERED: PROCHLORPERAZINE INJECTION 10 MG/2 ML VIAL IVPB PRN (04:15)
[2019-09-02] MEDS: SODIUM CHLORIDE 1,000 ML IV SCH ×2 (05:24→06:39)
[2019-09-02] MEDS: HEPARIN NA (PORCINE) 5,000 UNITS/ML 1ML VIAL SQ SCH ×2 (06:44→13:24)
[2019-09-02 08:10] VITALS: BMI 29.6
[2019-09-02] MEDS: KCL 10 MEQ IVPB 10 MEQ/100 ML INFUS.BAG IVPB SCH ×3 (08:25→12:27)
[2019-09-02] MEDS ORDERED: ENOXAPARIN NA (PORCINE) 40 MG/0.4 ML DISP.SYRIN SQ SCH (10:00)
--- NOTE | 2019-09-02 10:08 | CONSULT ---
Consult - text type - Consultation Consultation Note: 74yo Nepali female here with 2 days of abdominal discomfort, constipation and decreased urinary output. +flatus, henson now in place draining urine. Chart, labs and imaging reviewed. CT scan from 2018 and 2019 reviewed, stable 6cm uterine fibroid- essentially unchanged or slightly smaller. Given lack of change of this finding, not likely cause of acute decrease in her urinary output. No evidence of obstruction on imaging and patient is passing flatus. There are bilateral renal cysts 4 and 6cm in size and may warrant consultation with Nephrology for their potential contribution to her clinical picture. No in house management is needed from BEHAVIORAL TECHNICIAN at this time. Patient can follow up as an outpatient for further care, however, given age and other co-morbidities, poor surgical candidate and will likely require expectant management given this fibroid likely an incidental finding. Constipation and poor urinary output should be managed per primary team in usual fashion. Paras Boone MD
--- NOTE | 2019-09-02 11:28 | EKG ---
Test Reason : Blood Pressure : / mmHG Vent. Rate : 071 BPM Atrial Rate : 071 BPM P-R Int : 186 ms QRS Dur : 102 ms QT Int : 422 ms P-R-T Axes : 073 070 066 degrees QTc Int : 458 ms NORMAL SINUS RHYTHM MINIMAL VOLTAGE CRITERIA FOR LVH, MAY BE NORMAL VARIANT BORDERLINE ECG WHEN COMPARED WITH ECG OF 13-SEP-2017 12:28, NO SIGNIFICANT CHANGE WAS FOUND Confirmed by LISA BENITEZ MD ([id number]) on 09/02/2019 11:28:25 AM Referred By: Confirmed By:LISA BENITEZ MD
[2019-09-02] MEDS ORDERED: KCL 10 MEQ IVPB 10 MEQ/100 ML INFUS.BAG IVPB SCH (12:15)
[2019-09-02] MEDS ORDERED: POLYETHYLENE GLYCOL 3350 119 GM BTL PO PRN (13:28)
--- NOTE | 2019-09-02 13:29 | PN ---
Teaching Attending Note Name of Resident: Jamie Cruz ATTENDING PHYSICIAN STATEMENT I saw and evaluated the patient. I reviewed the resident's note and discussed the case with the resident. I agree with the resident's findings and plan as documented with exceptions below. SUBJECTIVE: Patient seen and examined, reports constipation and inability to urinate. Denies abdominal pain currently. Breathing at baseline. OBJECTIVE: Vital Signs Period Temp Pulse Resp BP Sys/Stanton Pulse Ox Last 24 Hr 96.7 F-100.3 F 54-66 14-20 118-137/52-70 91-97 Intake & Output 08/30/19 08/31/19 09/01/19 09/02/19 23:59 23:59 23:59 23:59 Weight 115 lb 151 lb 9.6 oz General: sitting in bed, no acute distress neck: soft, supple Chest; decreased air entry all over, scattered coarse rales Abdomen:SOft, NT throughout, ND, pos bowel sounds, no CVA or suprapubic tenderness Extremities: no edema Home Medications Medication Instructions Recorded Oseltamivir Phosphate 75 mg PO BID #10 capsule 09/13/17 Oseltamivir Phosphate [Tamiflu] 75 mg PO BID #10 capsule 09/13/17 Oseltamivir Phosphate [Tamiflu] 75 mg PO BID #10 capsule 09/13/17 Albuterol Sulfate Inhaler - 1 - 2 inh PO Q4H #1 inhaler 09/14/17 [Ventolin HFA Inhaler -] Ondansetron [Zofran *Odt*] 4 mg SL PRN PRN #14 od.tablet 09/14/17 Active Medications Acetaminophen (Tylenol -) 650 mg PO Q4H PRN PRN Reason: PAIN LEVEL 6-10 Albuterol Sulfate (Ventolin 0.083% Nebulizer Soln -) 1 amp NEB Q4H PRN PRN Reason: SHORT OF BREATH/WHEEZING Docusate Sodium (Colace -) 100 mg PO TID [facility] Heparin Sodium (Porcine) (Heparin -) 5,000 unit SQ TID CHELO Last Admin: 09/02/19 13:24 Dose: 5,000 unit Sodium Chloride (Normal Saline -) 1,000 mls @ 100 mls/hr IV ASDIR [facility] Last Admin: 09/02/19 06:39 Dose: 100 mls/hr Polyethylene Glycol (Miralax (For Daily Use) -) 17 gm PO DAILY PRN PRN Reason: CONSTIPATION Prochlorperazine Edisylate (Compazine Injection -) 2.5 mg IVPB Q4H PRN PRN Reason: NAUSEA AND/OR VOMITING Last Admin: 09/02/19 06:40 Dose: 2.5 mg Senna (Senna -) 2 tab PO HS [facility] Laboratory Results - last 24 hr 09/01/19 09/01/19 09/01/19 21:00 21:30 21:30 WBC 4.8 RBC 4.17 Hgb 12.1 Hct 36.8 MCV 88.2 MCH 29.0 MCHC 32.9 RDW 15.0 D Plt Count 96 L MPV 8.9 Absolute Neuts (auto) 3.9 Neutrophils % 82.4 Lymphocytes % 10.2 D Monocytes % 7.1 Eosinophils % 0.0 Basophils % 0.3 Nucleated RBC % 0 Sodium Potassium Chloride Carbon Dioxide Anion Gap BUN Creatinine Est GFR (CKD-EPI)AfAm Est GFR (CKD-EPI)NonAf Random Glucose Lactic Acid 1.2 Calcium Total Bilirubin AST ALT Alkaline Phosphatase Troponin I Total Protein Albumin Lipase Urine Color Dk yellow Urine Appearance Clear Urine pH 5.5 Ur Specific [place] 1.021 Urine Protein 1+ H Urine Glucose (UA) Negative Urine Ketones Negative Urine Blood Negative Urine Nitrite Negative Urine Bilirubin Negative Urine Urobilinogen 1.0 Ur Leukocyte Esterase Negative Urine WBC (Auto) 2 Urine RBC (Auto) 3 Urine Casts (Auto) 7 U Epithel Cells (Auto) 2.7 Urine Bacteria (Auto) 22.9 09/01/19 09/01/19 21:30 21:30 WBC RBC Hgb Hct MCV MCH MCHC RDW Plt Count MPV Absolute Neuts (auto) Neutrophils % Lymphocytes % Monocytes % Eosinophils % Basophils % Nucleated RBC % Sodium 136 Potassium 3.1 L Chloride 99 Carbon Dioxide 30 Anion Gap 7 L BUN 26.8 H Creatinine 1.1 Est GFR (CKD-EPI)AfAm 56.48 Est GFR (CKD-EPI)NonAf 48.73 Random Glucose 95 Lactic Acid Calcium 7.9 L Total Bilirubin 0.7 AST 34 ALT 23 Alkaline Phosphatase 45 Troponin I 0.02 Total Protein 7.0 Albumin 3.4 Lipase 79 Urine Color Urine Appearance Urine pH Ur Specific [place] Urine Protein Urine Glucose (UA) Urine Ketones Urine Blood Urine Nitrite Urine Bilirubin Urine Urobilinogen Ur Leukocyte Esterase Urine WBC (Auto) Urine RBC (Auto) Urine Casts (Auto) U Epithel Cells (Auto) Urine Bacteria (Auto) CT chest/A/P results reviewed ASSESSMENT AND PLAN: 74 yof with PMHx of ILD on nightly oxygen, non smoker, HTN, ?DM, uterine fibroids, admitted with constipation, urinary retention -Constipation/Fecal impaction -Urinary retention, likely from above rather than known long standing uterine fibroid -Uterine fibroids -ILD on nightly oxygen -HTN -?DM Plan: No BM yet, repeat Enema, start on aggressive bowel regimen. High fiber diet. Voiding trial once constipation resolved. No evidence of UTI. [employer] Team Member input noted, known prior h/o uterine fibroids, Rec outpatient follow up. Resume diet. Check A1c. Reconcile home meds and resume anti-hypertensives. dvTPPx dispo in 1-2 days as symptoms improve. PT eval.
[2019-09-02] MEDS: DOCUSATE SODIUM 100 MG CAPSULE (FP) PO SCH ×2 (14:02→22:32)
[2019-09-02 14:04] LABS: BASO % 0.5 % (0-2.0); EOS % 0.1 % (0-4.5); HEMATOCRIT 36.8 % (32.4-45.2); LYMPH % 19.9 % (8-40); MCH 28.9 pg (25.7-33.7); MCHC 32.8 g/dl (32.0-36.0); MEAN CELL VOLUME 88.1 fl (80-96); MEAN PLT VOLUME 9.1 fl (7.5-11.1); MONO % 8.9 % (3.8-10.2); NEUT % 70.6 % (42.8-82.8); PLATELET COUNT 90 K/MM3 (134-434); RBC 4.17 M/mm3 (3.60-5.2); RDW 14.6 % (11.6-15.6); WHITE BLOOD COUNT 2.7 K/mm3 (4.0-10.0)
[2019-09-02 14:53] LABS: BILIRUBIN,TOTAL 0.5 mg/dL (0.2-1); BLOOD UREA NITROGEN 21.4 mg/dL (7-18); CREATININE 0.8 mg/dL (0.55-1.3); MAGNESIUM 2.4 mg/dL (1.8-2.4); PHOSPHOROUS 2.7 mg/dL (2.5-4.9); POTASSIUM 3.7 mmol/L (3.5-5.1); TOT PROT 6.3 g/dl (6.4-8.2)
--- NOTE | 2019-09-02 15:45 | PN ---
Physical Exam: SUBJECTIVE: Patient seen and examined at the bedside. [employer] transportation coordinator Milad [id number] was utilized in translation. Patient noted that she had not had a bowel movement in 2 days and had difficulty urinating prior to the henson placement. She endorsed some abdominal discomfort. Denied cp, sob, n/v/c/d, fever, chills, dizziness, lightheadedness, back pain, visual changes. OBJECTIVE: Vital Signs Period Temp Pulse Resp BP Sys/Stanton Pulse Ox Last 24 Hr 96.7 F-100.3 F 54-66 14-20 118-137/52-70 91-97 GENERAL: The patient is awake, alert, and fully oriented, in no acute distress. Greek speaking. EYES: PERRL, extraocular movements intact, sclera anicteric, conjunctiva clear. ENT: Oropharynx clear without exudates, moist mucous membranes. LUNGS: Breath sounds equal, coarse breath sounds throughout, no wheezes auscultated no accessory muscle use. HEART: Regular rate and rhythm, S1, S2 without murmur, rub. ABDOMEN: Soft, mildly tender in the suprapubic region, nondistended, normoactive bowel sounds, no guarding, no rebound, no masses. EXTREMITIES: 2+ pulses, warm, well-perfused, no edema. NEUROLOGICAL: Cranial nerves II through XII grossly intact. 5/5 muscle strength bilaterally upper and lower extremities. PSYCH: Normal mood, normal affect. SKIN: Warm, dry, normal turgor, no rashes or lesions noted Laboratory Results - last 24 hr 09/01/19 09/01/19 09/01/19 21:00 21:30 21:30 WBC 4.8 RBC 4.17 Hgb 12.1 Hct 36.8 MCV 88.2 MCH 29.0 MCHC 32.9 RDW 15.0 D Plt Count 96 L MPV 8.9 Absolute Neuts (auto) 3.9 Neutrophils % 82.4 Lymphocytes % 10.2 D Monocytes % 7.1 Eosinophils % 0.0 Basophils % 0.3 Nucleated RBC % 0 Sodium Potassium Chloride Carbon Dioxide Anion Gap BUN Creatinine Est GFR (CKD-EPI)AfAm Est GFR (CKD-EPI)NonAf Random Glucose Lactic Acid 1.2 Calcium Phosphorus Magnesium Total Bilirubin AST ALT Alkaline Phosphatase Troponin I Total Protein Albumin Lipase Urine Color Dk yellow Urine Appearance Clear Urine pH 5.5 Ur Specific Mcdaniels 1.021 Urine Protein 1+ H Urine Glucose (UA) Negative Urine Ketones Negative Urine Blood Negative Urine Nitrite Negative Urine Bilirubin Negative Urine Urobilinogen 1.0 Ur Leukocyte Esterase Negative Urine WBC (Auto) 2 Urine RBC (Auto) 3 Urine Casts (Auto) 7 U Epithel Cells (Auto) 2.7 Urine Bacteria (Auto) 22.9 Blood Type Antibody Screen 09/01/19 09/01/19 09/02/19 21:30 21:30 13:08 WBC 2.7 L RBC 4.17 Hgb 12.0 Hct 36.8 MCV 88.1 MCH 28.9 MCHC 32.8 RDW 14.6 Plt Count 90 L MPV 9.1 Absolute Neuts (auto) 1.9 Neutrophils % 70.6 Lymphocytes % 19.9 D Monocytes % 8.9 Eosinophils % 0.1 D Basophils % 0.5 Nucleated RBC % 0 Sodium 136 Potassium 3.1 L Chloride 99 Carbon Dioxide 30 Anion Gap 7 L BUN 26.8 H Creatinine 1.1 Est GFR (CKD-EPI)AfAm 56.48 Est GFR (CKD-EPI)NonAf 48.73 Random Glucose 95 Lactic Acid Calcium 7.9 L Phosphorus Magnesium Total Bilirubin 0.7 AST 34 ALT 23 Alkaline Phosphatase 45 Troponin I 0.02 Total Protein 7.0 Albumin 3.4 Lipase 79 Urine Color Urine Appearance Urine pH Ur Specific Mcdaniels Urine Protein Urine Glucose (UA) Urine Ketones Urine Blood Urine Nitrite Urine Bilirubin Urine Urobilinogen Ur Leukocyte Esterase Urine WBC (Auto) Urine RBC (Auto) Urine Casts (Auto) U Epithel Cells (Auto) Urine Bacteria (Auto) Blood Type Antibody Screen 09/02/19 09/02/19 13:08 13:08 WBC RBC Hgb Hct MCV MCH MCHC RDW Plt Count MPV Absolute Neuts (auto) Neutrophils % Lymphocytes % Monocytes % Eosinophils % Basophils % Nucleated RBC % Sodium 136 Potassium 3.7 Chloride 102 Carbon Dioxide 27 Anion Gap 7 L BUN 21.4 H Creatinine 0.8 Est GFR (CKD-EPI)AfAm 83.00 Est GFR (CKD-EPI)NonAf 71.61 Random Glucose 67 L Lactic Acid Calcium 8.0 L Phosphorus 2.7 Magnesium 2.4 Total Bilirubin 0.5 AST 37 ALT 23 Alkaline Phosphatase 40 L Troponin I Total Protein 6.3 L Albumin 3.0 L Lipase Urine Color Urine Appearance Urine pH Ur Specific Mcdaniels Urine Protein Urine Glucose (UA) Urine Ketones Urine Blood Urine Nitrite Urine Bilirubin Urine Urobilinogen Ur Leukocyte Esterase Urine WBC (Auto) Urine RBC (Auto) Urine Casts (Auto) U Epithel Cells (Auto) Urine Bacteria (Auto) Blood Type B POSITIVE Antibody Screen Negative Active Medications Generic Name Dose Route Start Last Admin Trade Name Freq PRN Reason Stop Dose Admin Acetaminophen 650 mg 09/02/19 03:39 Tylenol - PO Q4H PRN PAIN LEVEL 6-10 Albuterol Sulfate 1 amp 09/02/19 03:39 Ventolin 0.083% Nebulizer Soln - NEB Q4H PRN SHORT OF BREATH/WHEEZING Docusate Sodium 100 mg 09/02/19 14:00 09/02/19 14:02 Colace - PO 100 mg TID CHELO Administration Sodium Chloride 1,000 mls @ 100 mls/hr 09/02/19 03:45 09/02/19 06:39 Normal Saline - IV 100 mls/hr ASDIR CHELO Administration Polyethylene Glycol 17 gm 09/02/19 13:28 Miralax (For Daily Use) - PO DAILY PRN CONSTIPATION Prochlorperazine Edisylate 2.5 mg 09/02/19 04:15 09/02/19 06:40 Compazine Injection - IVPB 2.5 mg Q4H PRN Administration NAUSEA AND/OR VOMITING Senna 2 tab 09/02/19 22:00 Senna - PO HS [facility] ASSESSMENT/PLAN: Boy Calderon is a 74 year old female with a past medical history of asthma, HTN, DM , uterine fibroids admitted for acute urinary retention. Acute urinary retention and constipation - CT noting enlarged uterus with fibroids - compazine 2.5mg Q4h for nausea - Mineral oil enema for constipation - Henson catheter for bladder decompression - high fiber diet - Coal Sample Tester consult, recs appreciated, no acute intervention and fibroids not causing retention or constipation - patient on 3 medications that can cause urinary retention (oxybutinin, solfenacin, levoceterazine), held for now - will have voiding trial before discharge - bowel regimen with senna, colace, and miralax - PT eval, patient stated she was too weak to work with PT today, will be reassessed Uterine fibroid - Gynecology consulted, recs appreciated, will follow up outpatient for fibroids Thrombocytopenia - Platelets 90 today, chronic - will continue to monitor 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 - currently asx, w/o changes in LFTs - MRCP ordered Bilateral renal cortical cysts - monitor as pt is asymptomatic - will require outpatient follow up with nephrology Asthma and interstitial lung disease - Chest CT noting extensive chronic lung disease with upper lobe fibrosis, broncheictasis, and calcifications - continue home inhalers DM - random blood glucose within normal limits - A1c check - BGM bid HLD - continue home simvastatin HTN - continue home amlodipine DVT PPx - SCDs due to low platelets FEN - NS at 100cc/hr can d/c when patient having adequate oral intake - continue to monitor electrolytes and replete as necessary - High fiber diet Dispo - continue to monitor on Med-surg Visit type - Emergency Visit Emergency Visit: Yes ED Registration Date: 09/02/19 Care time: The patient presented to the Emergency Department on the above date and was hospitalized for further evaluation of their emergent condition. - New Patient This patient is new to me today: Yes Date on this admission: 09/02/19 - Critical Care Critical Care patient: No
[2019-09-02] MEDS ORDERED: PT OWN MED DRAWER 7, Y5N ONE ×2 (21:36→22:18)
[2019-09-02] MEDS: CALCIUM 500MG/VIT-D 200 UNITS COMBO TABLET (FP) PO SCH (22:31)
[2019-09-02] MEDS: ATORVASTATIN CA 10 MG TABLET (FP) PO SCH (22:32)
[2019-09-02] MEDS: BUDESONIDE/FORMETEROL FUMARATE 160/4.5 mcg INHALER IH SCH (22:32)
[2019-09-02] MEDS: SENNOSIDES 8.6MG TABLET (FP) PO SCH (22:32)
[2019-09-02] MEDS: OMEGA-3 ACID ETHYL ESTERS (FATTY-ACIDS) 1 GM CAPSULE (FP) PO SCH (22:32)
[2019-09-03] MEDS: SODIUM CHLORIDE 1,000 ML IV SCH (02:48)
[2019-09-03] MEDS: DOCUSATE SODIUM 100 MG CAPSULE (FP) PO SCH ×3 (06:30→21:42)
[2019-09-03] MEDS: ALBUTEROL SO4 0.083% IH SOL 2.5 MG/3 ML VIAL.NEB. NEB PRN ×3 (07:40→21:12)
[2019-09-03 07:51] LABS: EOS % 0.1 % (0-4.5); HEMATOCRIT 40.1 % (32.4-45.2); HEMOGLOBIN 13.2 GM/dL (10.7-15.3); MCH 28.8 pg (25.7-33.7); MEAN CELL VOLUME 87.3 fl (80-96); MEAN PLT VOLUME 9.1 fl (7.5-11.1); MONO % 10.1 % (3.8-10.2); NEUT % 52.8 % (42.8-82.8); PLATELET COUNT 109 K/MM3 (134-434); RBC 4.59 M/mm3 (3.60-5.2); RDW 14.6 % (11.6-15.6); WHITE BLOOD COUNT 2.5 K/mm3 (4.0-10.0)
[2019-09-03 08:17] LABS: BLOOD UREA NITROGEN 14.6 mg/dL (7-18); CALCIUM 8.3 mg/dL (8.5-10.1); CREATININE 0.7 mg/dL (0.55-1.3); MAGNESIUM 2.2 mg/dL (1.8-2.4); POTASSIUM 3.4 mmol/L (3.5-5.1)
[2019-09-03] MEDS ORDERED: POTASSIUM CHLORIDE TABS 20 MEQ TABLET.ER (FP) PO ONE (09:00)
[2019-09-03] MEDS: OMEGA-3 ACID ETHYL ESTERS (FATTY-ACIDS) 1 GM CAPSULE (FP) PO SCH ×2 (10:01→21:42)
[2019-09-03] MEDS: amLODIPine BESYLATE 10 MG TABLET (FP) PO SCH (10:01)
[2019-09-03] MEDS: PANTOPRAZOLE 40 MG TABLET (FP) PO SCH (10:01)
[2019-09-03] MEDS: ASPIRIN 81 MG CHEWABLE TABLETS PO SCH (10:02)
[2019-09-03] MEDS: VALSARTAN 80 MG TABLET (UD) PO SCH (10:02)
[2019-09-03] MEDS: MONTELUKAST NA 10 MG TABLET PO SCH (10:02)
[2019-09-03] MEDS: BUDESONIDE/FORMETEROL FUMARATE 160/4.5 mcg INHALER IH SCH ×2 (10:03→21:42)
--- NOTE | 2019-09-03 10:14 | DS ---
Physical Exam: SUBJECTIVE: Patient seen and examined at the bedside. Noted that she is feelings well and had a bowel movement and voided her bowels since last night. She denied cp, sob, abd pain, n/v/c/d/, fever, chills, headaches, dizziness, lightheadedness. OBJECTIVE: Vital Signs Period Temp Pulse Resp BP Sys/Stanton Pulse Ox Last 24 Hr 98.1 F-98.7 F 58-75 18-20 141-165/66-76 94 PHYSICAL EXAM GENERAL: The patient is awake, alert, and fully oriented, in no acute distress. EYES: PERRL, extraocular movements intact, sclera anicteric, conjunctiva clear. ENT: Oropharynx clear without exudates, moist mucous membranes. LUNGS: Breath sounds equal, coarse breath sounds throughout, no wheezes auscultated no accessory muscle use. HEART: Regular rate and rhythm, S1, S2 without murmur, rub. ABDOMEN: Soft, mildly tender in the suprapubic region, nondistended, normoactive bowel sounds, no guarding, no rebound, no masses. EXTREMITIES: 2+ pulses, warm, well-perfused, no edema. NEUROLOGICAL: Cranial nerves II through XII grossly intact. 5/5 muscle strength bilaterally upper and lower extremities. PSYCH: Normal mood, normal affect. SKIN: Warm, dry, normal turgor, no rashes or lesions noted LABS Laboratory Results - last 24 hr 09/02/19 09/02/19 09/02/19 13:08 13:08 13:08 WBC 2.7 L RBC 4.17 Hgb 12.0 Hct 36.8 MCV 88.1 MCH 28.9 MCHC 32.8 RDW 14.6 Plt Count 90 L MPV 9.1 Absolute Neuts (auto) 1.9 Neutrophils % 70.6 Lymphocytes % 19.9 D Monocytes % 8.9 Eosinophils % 0.1 D Basophils % 0.5 Nucleated RBC % 0 Sodium 136 Potassium 3.7 Chloride 102 Carbon Dioxide 27 Anion Gap 7 L BUN 21.4 H Creatinine 0.8 Est GFR (CKD-EPI)AfAm 83.00 Est GFR (CKD-EPI)NonAf 71.61 POC Glucometer Random Glucose 67 L Hemoglobin A1c % Calcium 8.0 L Phosphorus 2.7 Magnesium 2.4 Total Bilirubin 0.5 AST 37 ALT 23 Alkaline Phosphatase 40 L Total Protein 6.3 L Albumin 3.0 L Blood Type B POSITIVE Antibody Screen Negative 09/02/19 09/03/19 09/03/19 21:30 06:20 06:20 WBC 2.5 L RBC 4.59 Hgb 13.2 Hct 40.1 MCV 87.3 MCH 28.8 MCHC 33.0 RDW 14.6 Plt Count 109 L D MPV 9.1 Absolute Neuts (auto) 1.3 L Neutrophils % 52.8 D Lymphocytes % 36.0 D Monocytes % 10.1 Eosinophils % 0.1 Basophils % 1.0 Nucleated RBC % 0 Sodium Potassium Chloride Carbon Dioxide Anion Gap BUN Creatinine Est GFR (CKD-EPI)AfAm Est GFR (CKD-EPI)NonAf POC Glucometer 98 Random Glucose Hemoglobin A1c % 5.8 Calcium Phosphorus Magnesium Total Bilirubin AST ALT Alkaline Phosphatase Total Protein Albumin Blood Type Antibody Screen 09/03/19 09/03/19 06:20 06:24 WBC RBC Hgb Hct MCV MCH MCHC RDW Plt Count MPV Absolute Neuts (auto) Neutrophils % Lymphocytes % Monocytes % Eosinophils % Basophils % Nucleated RBC % Sodium 137 Potassium 3.4 L Chloride 102 Carbon Dioxide 25 Anion Gap 11 BUN 14.6 Creatinine 0.7 Est GFR (CKD-EPI)AfAm 97.54 Est GFR (CKD-EPI)NonAf 84.16 POC Glucometer 63 Random Glucose 66 L Hemoglobin A1c % Calcium 8.3 L Phosphorus Magnesium 2.2 Total Bilirubin AST ALT Alkaline Phosphatase Total Protein Albumin Blood Type Antibody Screen HOSPITAL COURSE: Boy Calderon is a 74 year old female with a past medical history of asthma, HTN, DM , uterine fibroids admitted for acute urinary retention. Patient was found to have urinary and fecal retention. Clement catheter was placed for urinary retention. Ct scan noted enlarged uterus with fibroids. Aluminum Hydroxide Process Operator was consulted and noted that the fibroids were not the cause of retention or constipation and there was no acute intervention necessary. The patient was started on a high fiber diet, given enemas, and started on a bowel regimen and the patient had several bowel movements. Patient's home medications included oxybutynin, solifenacin, and levoceterizine all possible causes of urinary retention and were stopped. Patient was given a voiding trial and was able to succesfully void on her own. On CT scan patient was noted to have bilateral renal cortical cysts for which she was advised to follow up with nephrology. On CT scan the patient was noted to have dilated hepatic duct/CBD/pancreatic duct with small pancreatic pseudocysts. MRCP was done which showed a mildly distended gallbladder with slight prominence of the proximal common bile duct. No dilation of intrahepatic and pancreatic ducts. The patient was advised to follow up with her PCP and gastroenterology outpatient. CT chest was done which showed extensive chronic lung disease with upper lobe fibrosis, bronchiectasis, and calcifications. Patient was advised to follow up with pulmonology. The patient was started on a bowel regimen and was advised to follow up with her PCP, wellness assistant, assignment desk assistant, and chain maker hand. The patient was advised of the plan, was in agreement, and reiterated it. The patient was discharged in stable medical condition. Date of Admission:09/02/19 Date of Discharge: 09/03/19 Minutes to complete discharge: 35 Discharge Summary Reason For Visit: DILATION OF COMMON BILE DUCT,ABD PAIN,DILA OF PANC Condition: Stable - Instructions Diet, Activity, Other Instructions: You were admitted due to your inability to have a bladder or bowel movement. You were given medication to help you have a bowel movement. A catheter was placed in order to help you void your urine and then you were trialed off of the catheter and were able to void your bladder on your own. A CT scan of your pelvis noted that you had some fibroids (masses) in your uterus which were not obstructing your bowel or bladder. You are encouraged to follow up with a chain maker hand for these findings. A CT scan noted that you had some cysts in your kidneys and are encouraged to follow up with a assignment desk assistant (kidney doctor ) for these findings. You were noted on the CT scan to have some enlargement of your liver and pancreas ducts. You had an MRCP (scan of your liver, gallbladder , and pancreas ducts) which showed that your gallbladder was enlarged and you had some enlargement of the bile ducts. You are advised to follow up with a wellness assistant. Your chest CT scan showed that you have extensive lung disease. You are advised to follow up with a luncheonette operator. MEDICATIONS STOP taking oxybutynin. STOP taking solifenacin. STOP taking levocetirazine. START taking Colace 100mg three times a day. START taking senna 2 tablets at nighttime. START taking Miralax 17gm as needed daily. Continue to take all of your other home medications as prescribed. REFERRALS Please follow up with your primary care doctor, Dr. Henriquez, within 1 week. Please follow up with the chain maker hand, Dr. Quach, within 1 week. If you would like a Khmer speaking chain maker hand, please refer to your primary care physician to refer you to one. Please follow up with the assignment desk assistant, Dr. Tavarez, within 1 week. Please follow up with the wellness assistant, Dr. De Paz, within 1 week. Please follow up with the pulmologist, Dr. Ng, within 1 week. SPECIAL INSTRUCTIONS If you have any symptoms of difficulty urinating, difficulty moving your bowels , fevers, bloody stools, bloody urine, chest pain, shortness of breath, or any other general feelings of unwellness, please call 911 or go your nearest emergency room. Referrals: MD Martinez [Other] - 1 Week Jose De Paz DO [Staff Physician] - 1 Week Sabino Quach MD [Staff Physician] - 1 Week Kishore Tavarez MD [Staff Physician] - 1 Week Nakul Ng MD, MD [Staff Physician] - 1 Week Disposition: HOME - Home Medications Comprehensive Discharge Medication List: Ambulatory Orders Albuterol Sulfate [Proair Hfa] 90 mcg IH TID 09/02/19 Amlodipine Besylate [Norvasc -] 10 mg PO DAILY 09/02/19 Aspirin [ASA -] 81 mg PO DAILY 09/02/19 Budesonide/Formeterol Fumarate [SYMBICORT 160/4.5mcg -] 2 puff IH BID 09/02/19 Calcium Carbonate/Vitamin D3 [Calcium 500-Vit D3 200 Tablet] 1 tablet PO BID Ergocalciferol [Vitamin D2] 50,000 unit PO WEEKLY 09/02/19 Fluoxetine HCl 10 mg PO DAILY 09/02/19 Icosapent Ethyl [Vascepa] 1 gm PO BID 09/02/19 Levocetirizine Dihydrochloride 5 mg PO DAILY 09/02/19 Montelukast Na [Singulair -] 10 mg PO DAILY 09/02/19 Oxybutynin Chloride [Oxybutynin Chloride ER] 15 mg PO DAILY 09/02/19 Pantoprazole Sodium [Protonix -] 40 mg PO DAILY 09/02/19 Potassium Citrate [Potassium Citrate ER] 15 meq PO BID 09/02/19 Simvastatin 10 mg PO DAILY 09/02/19 Sodium Chloride 3 % [Sodium Chloride] 750 ml IH BID 09/02/19 Solifenacin Succinate 5 mg PO DAILY 09/02/19 Valsartan 80 mg PO DAILY 09/02/19 metFORMIN HCL [Metformin HCl] 500 mg PO DAILY 09/02/19 This patient is new to me today: No Emergency Visit: Yes ED Registration Date: 09/02/19 Care time: The patient presented to the Emergency Department on the above date and was hospitalized for further evaluation of their emergent condition. Critical Care patient: No - Discharge Referral Referred to [facility] No
[2019-09-03] MEDS ORDERED: PT OWN MED DRAWER 7, Y5N ONE (10:22)
[2019-09-03] MEDS: FLUoxetine HCL 10 MG CAPSULE (FP) PO SCH (10:24)
--- NOTE | 2019-09-03 14:05 | PN ---
Teaching Attending Note Name of Resident: Jamie Cruz ATTENDING PHYSICIAN STATEMENT I saw and evaluated the patient. I reviewed the resident's note and discussed the case with the resident. I agree with the resident's findings and plan as documented. SUBJECTIVE: Patient voided a small amount this morning. She has moved her bowels. She denies abdominal pain. Tolerating diet. OBJECTIVE: Vital Signs Period Temp Pulse Resp BP Sys/Stanton Pulse Ox Last 24 Hr 98.1 F-98.7 F 58-75 18-20 141-165/66-76 94-95 HEART: S1S2, RRR LUNGS: Diffuse crackles ABDOMEN: Soft, non-tender, non-distended, normal BS, no masses EXTREMITIES: No edema Laboratory Results - last 24 hr 09/02/19 09/02/19 09/02/19 13:08 13:08 13:08 WBC 2.7 L RBC 4.17 Hgb 12.0 Hct 36.8 MCV 88.1 MCH 28.9 MCHC 32.8 RDW 14.6 Plt Count 90 L MPV 9.1 Absolute Neuts (auto) 1.9 Neutrophils % 70.6 Lymphocytes % 19.9 D Monocytes % 8.9 Eosinophils % 0.1 D Basophils % 0.5 Nucleated RBC % 0 Sodium 136 Potassium 3.7 Chloride 102 Carbon Dioxide 27 Anion Gap 7 L BUN 21.4 H Creatinine 0.8 Est GFR (CKD-EPI)AfAm 83.00 Est GFR (CKD-EPI)NonAf 71.61 POC Glucometer Random Glucose 67 L Hemoglobin A1c % Calcium 8.0 L Phosphorus 2.7 Magnesium 2.4 Total Bilirubin 0.5 AST 37 ALT 23 Alkaline Phosphatase 40 L Total Protein 6.3 L Albumin 3.0 L Blood Type B POSITIVE Antibody Screen Negative 09/02/19 09/03/19 09/03/19 21:30 06:20 06:20 WBC 2.5 L RBC 4.59 Hgb 13.2 Hct 40.1 MCV 87.3 MCH 28.8 MCHC 33.0 RDW 14.6 Plt Count 109 L D MPV 9.1 Absolute Neuts (auto) 1.3 L Neutrophils % 52.8 D Lymphocytes % 36.0 D Monocytes % 10.1 Eosinophils % 0.1 Basophils % 1.0 Nucleated RBC % 0 Sodium Potassium Chloride Carbon Dioxide Anion Gap BUN Creatinine Est GFR (CKD-EPI)AfAm Est GFR (CKD-EPI)NonAf POC Glucometer 98 Random Glucose Hemoglobin A1c % 5.8 Calcium Phosphorus Magnesium Total Bilirubin AST ALT Alkaline Phosphatase Total Protein Albumin Blood Type Antibody Screen 09/03/19 09/03/19 06:20 06:24 WBC RBC Hgb Hct MCV MCH MCHC RDW Plt Count MPV Absolute Neuts (auto) Neutrophils % Lymphocytes % Monocytes % Eosinophils % Basophils % Nucleated RBC % Sodium 137 Potassium 3.4 L Chloride 102 Carbon Dioxide 25 Anion Gap 11 BUN 14.6 Creatinine 0.7 Est GFR (CKD-EPI)AfAm 97.54 Est GFR (CKD-EPI)NonAf 84.16 POC Glucometer 63 Random Glucose 66 L Hemoglobin A1c % Calcium 8.3 L Phosphorus Magnesium 2.2 Total Bilirubin AST ALT Alkaline Phosphatase Total Protein Albumin Blood Type Antibody Screen Current Medications Generic Name Dose Route Start Last Admin Trade Name Freq PRN Reason Stop Dose Admin Acetaminophen 650 mg 09/02/19 03:39 Tylenol - PO Q4H PRN PAIN LEVEL 6-10 Albuterol Sulfate 1 amp 09/02/19 03:39 09/03/19 12:23 Ventolin 0.083% Nebulizer Soln - NEB 1 amp Q4H PRN Administration SHORT OF BREATH/WHEEZING Amlodipine Besylate 10 mg 09/03/19 10:00 09/03/19 10:01 Norvasc - PO 10 mg DAILY CHELO Administration Aspirin 81 mg 09/03/19 10:00 09/03/19 10:02 Asa - PO 81 mg DAILY CHELO Administration Atorvastatin Calcium 10 mg 09/02/19 22:00 09/02/19 22:32 Lipitor - PO 10 mg HS CHELO Administration Budesonide/Formoterol Fumarate 2 puff 09/02/19 22:00 09/03/19 10:03 Symbicort 160/4.5mcg - IH 2 puff BID CHELO Administration Calcium Carbonate/Cholecalciferol 1 tab 09/02/19 22:00 09/02/19 22:31 Os-Dallin 500+D - PO 1 tab BID CHELO Administration Docusate Sodium 100 mg 09/02/19 14:00 09/03/19 14:02 Colace - PO 100 mg TID CHELO Administration Fluoxetine HCl 10 mg 09/03/19 10:00 09/03/19 10:24 Prozac - PO 10 mg DAILY CHELO Administration Montelukast Sodium 10 mg 09/03/19 10:00 09/03/19 10:02 Singulair - PO 10 mg DAILY CHELO Administration [id number] Ethyl Esters 1 gm 09/02/19 22:00 09/03/19 10:01 Lovaza - PO 1 gm BID CHELO Administration Pantoprazole Sodium 40 mg 09/03/19 10:00 09/03/19 10:01 Protonix - PO 40 mg DAILY CHELO Administration Polyethylene Glycol 17 gm 09/02/19 13:28 Miralax (For Daily Use) - PO DAILY PRN CONSTIPATION Prochlorperazine Edisylate 2.5 mg 09/02/19 04:15 09/02/19 06:40 Compazine Injection - IVPB 2.5 mg Q4H PRN Administration NAUSEA AND/OR VOMITING Senna 2 tab 09/02/19 22:00 09/02/19 22:32 Senna - PO 2 tab HS CHELO Administration Valsartan 80 mg 09/03/19 10:00 09/03/19 10:02 Diovan - PO 80 mg DAILY CHELO Administration ASSESSMENT AND PLAN: This is a 74 year old woman with a history of HTN, asthma, appendectomy who presented to the ED with abdominal pain, constipation, vomiting, and difficulty urinating. 1. Abdominal pain with vomiting - Likely secondary to constipation/fecal retention - Improved once she had bowel movement after mineral oil enema - No evidence of bowel obstruction - Continue Colace, Senna, Miralax as needed 2. Urinary retention - Likely secondary to fecal retention and large uterine fibroid - Improved - Clement catheter removed 3. Hypokalemia - Replete potassium 4. Dehydration - Improved 5. Uterine fibroid - Outpatient paper sheeter follow-up 6. 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 on CT - MRCP shows mildly distended gallbladder with slight prominence of proximal CBD - Outpatient GI evaluation 7. Bilateral renal cortical cysts 8. Diverticulosis 9. Asthma, possible interstitial lung disease - Chest CT shows extensive chronic lung disease with upper lobe fibrosis, bronchiectasis, and calcifications suggestive of prior granulomatous disease - Pulmonary consult 10. Leukopenia, thrombocytopenia - Platelets stable - Heme-onc consult 11. Acute kidney injury secondary to dehydration, obstructive uropathy - Improved
[2019-09-03] MEDS: CALCIUM 500MG/VIT-D 200 UNITS COMBO TABLET (FP) PO SCH ×2 (15:26→21:42)
[2019-09-03] MEDS: POTASSIUM CITRATE 15 MEQ PO SCH (15:40)
--- NOTE | 2019-09-03 16:42 | PN ---
Physical Exam: SUBJECTIVE: Patient seen and examined at the bedside. Noted that she is feelings well and had a bowel movement and voided her bowels since last night. She denied cp, sob, abd pain, n/v/c/d/, fever, chills, headaches, dizziness, lightheadedness. OBJECTIVE: Vital Signs Period Temp Pulse Resp BP Sys/Stanton Pulse Ox Last 24 Hr 98.1 F-98.7 F 58-75 18-20 149-165/68-76 94-95 GENERAL: The patient is awake, alert, and fully oriented, in no acute distress. Romansh speaking. EYES: PERRL, extraocular movements intact, sclera anicteric, conjunctiva clear. ENT: Oropharynx clear without exudates, moist mucous membranes. LUNGS: Breath sounds equal, coarse breath sounds throughout, no wheezes auscultated no accessory muscle use. HEART: Regular rate and rhythm, S1, S2 without murmur, rub. ABDOMEN: Soft, mildly tender in the suprapubic region, nondistended, normoactive bowel sounds, no guarding, no rebound, no masses. EXTREMITIES: 2+ pulses, warm, well-perfused, no edema. NEUROLOGICAL: Cranial nerves II through XII grossly intact. 5/5 muscle strength bilaterally upper and lower extremities. PSYCH: Normal mood, normal affect. SKIN: Warm, dry, normal turgor, no rashes or lesions noted Laboratory Results - last 24 hr 09/02/19 09/03/19 09/03/19 21:30 06:20 06:20 WBC 2.5 L RBC 4.59 Hgb 13.2 Hct 40.1 MCV 87.3 MCH 28.8 MCHC 33.0 RDW 14.6 Plt Count 109 L D MPV 9.1 Absolute Neuts (auto) 1.3 L Neutrophils % 52.8 D Lymphocytes % 36.0 D Monocytes % 10.1 Eosinophils % 0.1 Basophils % 1.0 Nucleated RBC % 0 Sodium Potassium Chloride Carbon Dioxide Anion Gap BUN Creatinine Est GFR (CKD-EPI)AfAm Est GFR (CKD-EPI)NonAf POC Glucometer 98 Random Glucose Hemoglobin A1c % 5.8 Calcium Magnesium 09/03/19 09/03/19 06:20 06:24 WBC RBC Hgb Hct MCV MCH MCHC RDW Plt Count MPV Absolute Neuts (auto) Neutrophils % Lymphocytes % Monocytes % Eosinophils % Basophils % Nucleated RBC % Sodium 137 Potassium 3.4 L Chloride 102 Carbon Dioxide 25 Anion Gap 11 BUN 14.6 Creatinine 0.7 Est GFR (CKD-EPI)AfAm 97.54 Est GFR (CKD-EPI)NonAf 84.16 POC Glucometer 63 Random Glucose 66 L Hemoglobin A1c % Calcium 8.3 L Magnesium 2.2 Active Medications Generic Name Dose Route Start Last Admin Trade Name Freq PRN Reason Stop Dose Admin Acetaminophen 650 mg 09/02/19 03:39 Tylenol - PO Q4H PRN PAIN LEVEL 6-10 Albuterol Sulfate 1 amp 09/02/19 03:39 09/03/19 12:23 Ventolin 0.083% Nebulizer Soln - NEB 1 amp Q4H PRN Administration SHORT OF BREATH/WHEEZING Amlodipine Besylate 10 mg 09/03/19 10:00 09/03/19 10:01 Norvasc - PO 10 mg DAILY CHELO Administration Aspirin 81 mg 09/03/19 10:00 09/03/19 10:02 Asa - PO 81 mg DAILY CHELO Administration Atorvastatin Calcium 10 mg 09/02/19 22:00 09/02/19 22:32 Lipitor - PO 10 mg HS CHELO Administration Budesonide/Formoterol Fumarate 2 puff 09/02/19 22:00 09/03/19 10:03 Symbicort 160/4.5mcg - IH 2 puff BID CHELO Administration Calcium Carbonate/Cholecalciferol 1 tab 09/02/19 22:00 09/03/19 15:26 Os-Dallin 500+D - PO Not Given BID CHELO Docusate Sodium 100 mg 09/02/19 14:00 09/03/19 14:02 Colace - PO 100 mg TID CHELO Administration Fluoxetine HCl 10 mg 09/03/19 10:00 09/03/19 10:24 Prozac - PO 10 mg DAILY CHELO Administration Montelukast Sodium 10 mg 09/03/19 10:00 09/03/19 10:02 Singulair - PO 10 mg DAILY CHELO Administration Aobju-6-Jikd Ethyl Esters 1 gm 09/02/19 22:00 09/03/19 10:01 Lovaza - PO 1 gm BID CHELO Administration Pantoprazole Sodium 40 mg 09/03/19 10:00 09/03/19 10:01 Protonix - PO 40 mg DAILY CHELO Administration Polyethylene Glycol 17 gm 09/02/19 13:28 Miralax (For Daily Use) - PO DAILY PRN CONSTIPATION Prochlorperazine Edisylate 2.5 mg 09/02/19 04:15 09/02/19 06:40 Compazine Injection - IVPB 2.5 mg Q4H PRN Administration NAUSEA AND/OR VOMITING Senna 2 tab 09/02/19 22:00 09/02/19 22:32 Senna - PO 2 tab HS CHELO Administration Valsartan 80 mg 09/03/19 10:00 09/03/19 10:02 Diovan - PO 80 mg DAILY CHELO Administration ASSESSMENT/PLAN: Boy Calderon is a 74 year old female with a past medical history of asthma, HTN, DM , uterine fibroids admitted for acute urinary retention. Acute urinary retention and constipation - CT noting enlarged uterus with fibroids - compazine 2.5mg Q4h for nausea - henson removed today and patient spontaneously voided - high fiber diet - bowel regimen with senna, colace, and miralax - Protective Services Social Worker consult, recs appreciated, no acute intervention and fibroids not causing retention or constipation - patient on 3 medications that can cause urinary retention (oxybutinin, solfenacin, levoceterazine), held for now - PT eval, patient walked 200ft Uterine fibroid - Gynecology consulted, recs appreciated, will follow up outpatient for fibroids Thrombocytopenia - Platelets 109 today, chronic - will continue to monitor - Heme Onc consulted 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 - currently asx, w/o changes in LFTs - MRCP noting mildly distended gallbladder with slight prominence of the proximal common bile duct. No dilation of intrahepatic and pancreatic ducts - will need outpatient GI follow up Bilateral renal cortical cysts - monitor as pt is asymptomatic - will require outpatient follow up with nephrology Asthma and interstitial lung disease - Chest CT noting extensive chronic lung disease with upper lobe fibrosis, broncheictasis, and calcifications - continue home inhalers - pulmonology consulted DM - random blood glucose within normal limits - A1c 5.8 HLD - continue home simvastatin HTN - continue home amlodipine DVT PPx - SCDs due to low platelets FEN - no standing fluids, encourage PO intake - continue to monitor electrolytes and replete as necessary, hypokalemia noted and repleted - High fiber diet Dispo - continue to monitor on Med-surg Visit type - Emergency Visit Emergency Visit: Yes ED Registration Date: 09/02/19 Care time: The patient presented to the Emergency Department on the above date and was hospitalized for further evaluation of their emergent condition. - New Patient This patient is new to me today: No - Critical Care Critical Care patient: No
--- NOTE | 2019-09-03 17:19 | CONSULT ---
Consultation: REQUESTING PROVIDER:Primary team CONSULT REQUEST: We have been asked to medically evaluate this patient for ( leuckopenia , thrombocytopenia ). HISTORY OF PRESENT ILLNESS: 74 Y/O F with a PMH of asthma, HTN, DM, uterine fibroids presented to the ED after 2 days of abdominal discomfort, constipation, urinary frequency with decreased urinary output. Ms. Calderon started having urinary frequency and decreased output approximately 4 to 5 days ago. Then she began having abdominal pressure and constipation 2 days ago associated with nausea and NBNB vomiting. She denies fever, SOB, chest pain, dietary changes, weight loss, dysuria, diarrhea. She was told many years ago about uterine fibroids however she never followed up as she was informed that it might decrease in size post menopausal. denies any weight loss or gain , denies easy bruising or easy bleeding but she is on ASA daily, she lives with her husban , retired , used to work in [employer] , reports far history of urinary retention. no recent travel or sick contact PSHx: appendectomy FAMILY hx: no fam hx of cancer Social History:denies smoking alcohol or drug use REVIEW OF SYSTEMS: CONSTITUTIONAL: Absent: fever, chills, diaphoresis, generalized weakness, malaise, loss of appetite, weight change HEENT: Absent: rhinorrhea, nasal congestion, throat pain, throat swelling, difficulty swallowing, mouth swelling, ear pain, eye pain, visual changes CARDIOVASCULAR: Absent: chest pain, syncope, palpitations, irregular heart rate, lightheadedness , peripheral edema RESPIRATORY: Absent: cough, shortness of breath, dyspnea with exertion, orthopnea, wheezing, stridor, hemoptysis GASTROINTESTINAL: Absent: abdominal pain, abdominal distension, nausea, vomiting, diarrhea, constipation, melena, hematochezia GENITOURINARY: Absent: dysuria, frequency, urgency, hesitancy, hematuria, flank pain, genital pain MUSCULOSKELETAL: Absent: myalgia, arthralgia, joint swelling, back pain, neck pain SKIN: Absent: rash, itching, pallor HEMATOLOGIC/IMMUNOLOGIC: Absent: easy bleeding, easy bruising, lymphadenopathy, frequent infections ENDOCRINE: Absent: unexplained weight gain, unexplained weight loss, heat intolerance, cold intolerance NEUROLOGIC: Absent: headache, focal weakness or paresthesias, dizziness, unsteady gait, seizure, mental status changes, bladder or bowel incontinence PSYCHIATRIC: Absent: anxiety, depression, suicidal or homicidal ideation, hallucinations. PHYSICAL EXAMINATION Vital Signs - 24 hr 09/02/19 09/02/19 09/03/19 18:00 21:00 02:00 Temperature 98.4 F 98.1 F Pulse Rate 58 L 58 L Respiratory 20 20 18 Rate Blood Pressure 165/72 155/76 O2 Sat by Pulse 94 L Oximetry (%) 09/03/19 09/03/19 09:00 09:23 Temperature 98.7 F Pulse Rate 75 Respiratory 18 Rate Blood Pressure 149/68 O2 Sat by Pulse 95 Oximetry (%) GENERAL:Ao3 in NAD HEAD: NC/At EYES: ISAIAS< EOMI sclera anicteric, conjunctiva clear. ENT: Moist mucous membranes.no mucositis , or oral thrush noted , throat erythema NECK: NC/AT , no lyphadenopathy , Breast : no masses palpated nodes: no submandibular , axillary or inguinal lymph nodes palpated LUNGS: Breath sounds equal, clear to auscultation bilaterally. No wheezes, and no crackles. No accessory muscle use. HEART: Regular rate and rhythm, normal S1 and S2 without murmur, rub or gallop. ABDOMEN: Soft, nontender, not distended, normoactive bowel sounds, no guarding, no rebound, LOWER EXTREMITIES: 2+ pulses, warm, well-perfused. No calf tenderness. No peripheral edema. NEUROLOGICAL: Cranial nerves II-XII intact. Normal speech. PSYCHIATRIC: Cooperative. Good eye contact. Appropriate mood and affect. SKIN: Warm, dry, normal turgor, Laboratory Results - last 24 hr 09/02/19 09/03/19 09/03/19 21:30 06:20 06:20 WBC 2.5 L RBC 4.59 Hgb 13.2 Hct 40.1 MCV 87.3 MCH 28.8 MCHC 33.0 RDW 14.6 Plt Count 109 L D MPV 9.1 Absolute Neuts (auto) 1.3 L Neutrophils % 52.8 D Lymphocytes % 36.0 D Monocytes % 10.1 Eosinophils % 0.1 Basophils % 1.0 Nucleated RBC % 0 Sodium Potassium Chloride Carbon Dioxide Anion Gap BUN Creatinine Est GFR (CKD-EPI)AfAm Est GFR (CKD-EPI)NonAf POC Glucometer 98 Random Glucose Hemoglobin A1c % 5.8 Calcium Magnesium 09/03/19 09/03/19 06:20 06:24 WBC RBC Hgb Hct MCV MCH MCHC RDW Plt Count MPV Absolute Neuts (auto) Neutrophils % Lymphocytes % Monocytes % Eosinophils % Basophils % Nucleated RBC % Sodium 137 Potassium 3.4 L Chloride 102 Carbon Dioxide 25 Anion Gap 11 BUN 14.6 Creatinine 0.7 Est GFR (CKD-EPI)AfAm 97.54 Est GFR (CKD-EPI)NonAf 84.16 POC Glucometer 63 Random Glucose 66 L Hemoglobin A1c % Calcium 8.3 L Magnesium 2.2 Active Medications Generic Name Dose Route Start Last Admin Trade Name Freq PRN Reason Stop Dose Admin Acetaminophen 650 mg 09/02/19 03:39 Tylenol - PO Q4H PRN PAIN LEVEL 6-10 Albuterol Sulfate 1 amp 09/02/19 03:39 09/03/19 12:23 Ventolin 0.083% Nebulizer Soln - NEB 1 amp Q4H PRN Administration SHORT OF BREATH/WHEEZING Amlodipine Besylate 10 mg 09/03/19 10:00 09/03/19 10:01 Norvasc - PO 10 mg DAILY CHELO Administration Aspirin 81 mg 09/03/19 10:00 09/03/19 10:02 Asa - PO 81 mg DAILY CHELO Administration Atorvastatin Calcium 10 mg 09/02/19 22:00 09/02/19 22:32 Lipitor - PO 10 mg HS CHELO Administration Budesonide/Formoterol Fumarate 2 puff 09/02/19 22:00 09/03/19 10:03 Symbicort 160/4.5mcg - IH 2 puff BID CHELO Administration Calcium Carbonate/Cholecalciferol 1 tab 09/02/19 22:00 09/03/19 15:26 Os-Dallin 500+D - PO Not Given BID CHELO Docusate Sodium 100 mg 09/02/19 14:00 09/03/19 14:02 Colace - PO 100 mg TID CHELO Administration Fluoxetine HCl 10 mg 09/03/19 10:00 09/03/19 10:24 Prozac - PO 10 mg DAILY CHELO Administration Montelukast Sodium 10 mg 09/03/19 10:00 09/03/19 10:02 Singulair - PO 10 mg DAILY CHELO Administration Bufld-8-Yslr Ethyl Esters 1 gm 09/02/19 22:00 09/03/19 10:01 Lovaza - PO 1 gm BID CHELO Administration Pantoprazole Sodium 40 mg 09/03/19 10:00 09/03/19 10:01 Protonix - PO 40 mg DAILY CHELO Administration Polyethylene Glycol 17 gm 09/02/19 13:28 Miralax (For Daily Use) - PO DAILY PRN CONSTIPATION Prochlorperazine Edisylate 2.5 mg 09/02/19 04:15 09/02/19 06:40 Compazine Injection - IVPB 2.5 mg Q4H PRN Administration NAUSEA AND/OR VOMITING Senna 2 tab 09/02/19 22:00 09/02/19 22:32 Senna - PO 2 tab HS CHELO Administration Valsartan 80 mg 09/03/19 10:00 09/03/19 10:02 Diovan - PO 80 mg DAILY CHELO Administration CBC, BMP 09/03/19 06:20 09/03/19 06:20 ASSESSMENT/PLAN: pending discussion with Dr Leann Brunson Yumiko is a 74 year old female with a past medical history of asthma, HTN, DM , uterine fibroids admitted for acute urinary retention.we were consulted for leukopenia and thrmobocytopenia # Leuckopenia send flow cytometry , fish and cytogenetics #Thrombocytopenia * Platelets 109 today, chronic, no active bleeding , monitor for now * transfuse if below 10 K * hold asa for plt below 50 K * chek B12/folate/TSH/fT4/LDH/ESR/CRP/protein studies/ * sullivan cx 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 , MRCP reviewed , Gi consulted #Bilateral renal cortical cysts, nephrology consulted #Asthma and interstitial lung disease Chest CT: chronic lung disease with upper lobe fibrosis, broncheictasis, and calcifications #Acute urinary retention and constipation #DM #HLD #HTN #DVT PPx #Uterine fibroid # Monitor lytes # Hypoglycemia - Gynecology consulted, recs appreciated, will follow up outpatient for fibroids Dispo: We will continue to follow the patient. Thank you for this consultative opportunity. Visit type - Emergency Visit Emergency Visit: Yes ED Registration Date: 09/02/19 Care time: The patient presented to the Emergency Department on the above date and was hospitalized for further evaluation of their emergent condition. - New Patient This patient is new to me today: Yes Date on this admission: 09/02/19 - Critical Care Critical Care patient: No ATTENDING PHYSICIAN STATEMENT I saw and evaluated the patient. I reviewed the resident's note and discussed the case with the resident. I agree with the resident's findings and plan as documented. SUBJECTIVE: OBJECTIVE: ASSESSMENT AND PLAN:
[2019-09-03] MEDS: SENNOSIDES 8.6MG TABLET (FP) PO SCH (21:42)
[2019-09-03] MEDS: ATORVASTATIN CA 10 MG TABLET (FP) PO SCH (21:42)
[2019-09-03] MEDS ORDERED: IBUPROFEN 200 MG TABLET PO ONE (22:15)
[2019-09-04] MEDS: DOCUSATE SODIUM 100 MG CAPSULE (FP) PO SCH ×3 (06:06→21:34)
[2019-09-04] MEDS ORDERED: IBUPROFEN 400 MG TABLET (FP) PO PRN (09:03)
[2019-09-04] MEDS ORDERED: PT OWN MED DRAWER 7, Y5N ONE (09:30)
[2019-09-04] MEDS: PANTOPRAZOLE 40 MG TABLET (FP) PO SCH (09:41)
[2019-09-04] MEDS: OMEGA-3 ACID ETHYL ESTERS (FATTY-ACIDS) 1 GM CAPSULE (FP) PO SCH ×3 (09:41→21:44)
[2019-09-04] MEDS: ASPIRIN 81 MG CHEWABLE TABLETS PO SCH (09:41)
[2019-09-04] MEDS: amLODIPine BESYLATE 10 MG TABLET (FP) PO SCH (09:42)
[2019-09-04] MEDS: CALCIUM 500MG/VIT-D 200 UNITS COMBO TABLET (FP) PO SCH ×3 (09:42→21:43)
[2019-09-04] MEDS: FLUoxetine HCL 10 MG CAPSULE (FP) PO SCH (09:42)
[2019-09-04] MEDS: MONTELUKAST NA 10 MG TABLET PO SCH (09:42)
[2019-09-04] MEDS: VALSARTAN 80 MG TABLET (UD) PO SCH (09:42)
[2019-09-04] MEDS: BUDESONIDE/FORMETEROL FUMARATE 160/4.5 mcg INHALER IH SCH ×2 (09:43→21:33)
--- NOTE | 2019-09-04 12:05 | CON.PULM ---
Consult Consult Specialty:: PULM/CCM Referred by:: Hospitalist Reason for Consultation:: Chronic lung disease - History of Present Illness History of Present Illness: 74 F, supposed asthma (? Mild Persistent), HTN, DM, and uterine fibroids. Admitted via the ER due to 2 days of abdominal discomfort, constipation, and decreased urine output. Patient with no apparent smoking history. Unclear what her occupation or domicile history due to language barrier. No apparent chronic exposure history. Denies SOB, chest pain, unexplained weight loss. No known history of TB. No history that would be consistent with OSAS. No known previous chest imaging. CT: Bilateral interstitial infiltrates with bronchiectasis - History Source History Provided By: Patient, Medical Record Limitations to Obtaining History: Language Barrier - Past Medical History Pulmonary: Yes: Asthma, Bronchitis. No: Cancer, COPD, O2 Dependent, Pneumonia, Previously Intubated, Pulmonary Embolus, Pulmonary Fibrosis, Sleep Apnea - Alcohol/Substance Use Hx Alcohol Use: No - Smoking History Smoking history: Never smoked Have you smoked in the past 12 months: No Home Medications - Allergies Allergies/Adverse Reactions: Allergies Allergy/AdvReac Type Severity Reaction Status Date / Time kiwi Allergy Verified 09/02/19 14:21 peach Allergy Verified 09/02/19 14:21 strawberry Allergy Verified 09/02/19 14:21 - Home Medications Home Medications: Ambulatory Orders Albuterol Sulfate [Proair Hfa] 90 mcg IH TID 09/02/19 Amlodipine Besylate [Norvasc -] 10 mg PO DAILY 09/02/19 Aspirin [ASA -] 81 mg PO DAILY 09/02/19 Budesonide/Formeterol Fumarate [SYMBICORT 160/4.5mcg -] 2 puff IH BID 09/02/19 Calcium Carbonate/Vitamin D3 [Calcium 500-Vit D3 200 Tablet] 1 tablet PO BID Ergocalciferol [Vitamin D2] 50,000 unit PO WEEKLY 09/02/19 Fluoxetine HCl 10 mg PO DAILY 09/02/19 Icosapent Ethyl [Vascepa] 2 gm PO BID 09/02/19 Montelukast Na [Singulair -] 10 mg PO DAILY 09/02/19 Pantoprazole Sodium [Protonix -] 40 mg PO DAILY 09/02/19 Potassium Citrate [Potassium Citrate ER] 15 meq PO BID 09/02/19 Simvastatin 10 mg PO DAILY 09/02/19 Sodium Chloride 3 % [Sodium Chloride] 750 ml IH BID 09/02/19 Valsartan 80 mg PO DAILY 09/02/19 metFORMIN HCL [Metformin HCl] 500 mg PO DAILY 09/02/19 Docusate Sodium [Colace -] 100 mg PO TID #90 capsule 09/03/19 Polyethylene Glycol 3350 [Miralax 119 gm Btl -] 17 gm PO DAILY PRN #1 bottle Sennosides [Senna -] 2 tab PO HS #60 tablet 09/03/19 Review of Systems - Review of Systems Constitutional: denies: Chills, Fever Eyes: reports: No Symptoms HENT: reports: No Symptoms Neck: reports: No Symptoms Cardiovascular: denies: Chest Pain, Edema, Palpitations, Shortness of Breath Respiratory: reports: Cough. denies: Hemoptysis, Orthopnea, PND, Snoring, SOB, SOB on Exertion, Wheezing Gastrointestinal: reports: Abdominal Pain, Bloating, Constipation. denies: Rectal Bleeding, Vomiting, Vomiting Blood Genitourinary: reports: No Symptoms Breasts: reports: No Symptoms Reported Musculoskeletal: reports: No Symptoms Integumentary: reports: No Symptoms Neurological: reports: No Symptoms Endocrine: reports: No Symptoms Hematology/Lymphatic: reports: No Symptoms Psychiatric: reports: No Symptoms Physical Exam Vital Sings: Vital Signs Temperature 98.3 F 09/04/19 09:35 Pulse Rate 70 09/04/19 09:35 Respiratory Rate 20 09/04/19 09:35 Blood Pressure 136/67 09/04/19 09:35 O2 Sat by Pulse Oximetry (%) 95 09/03/19 21:00 Constitutional: Yes: No Distress Eyes: Yes: Conjunctiva Clear, EOM Intact HENT: Yes: Atraumatic, Pharyngeal Erythema Neck: Yes: Supple, Trachea Midline Cardiovascular: Yes: Regular Rate and Rhythm Respiratory: Yes: Cough, Diminished, Rales, Rhonchi. No: Accessory Muscle Use, SOB, SOB on Exertion, Stridor, Tachypnea, Wheezes ...Inspection: Yes: WNL ...Clubbing: No Gastrointestinal: Yes: Normal Bowel Sounds, Soft Renal/: Yes: WNL Musculoskeletal: Yes: WNL Extremities: Yes: WNL Edema: No Peripheral Pulses WNL: Yes Integumentary: Yes: WNL Neurological: Yes: WNL, Alert, Oriented ...Motor Strength: WNL Psychiatric: Yes: WNL, Alert, Oriented Labs: CBC, BMP 09/03/19 06:20 09/03/19 06:20 Imaging - Results Chest X-ray: Report Reviewed, Image Reviewed Cat Scan: Report Reviewed, Image Reviewed Problem List - Problems (1) Interstitial lung disease Code(s): J84.9 - INTERSTITIAL PULMONARY DISEASE, UNSPECIFIED (2) Bronchiectasis Code(s): J47.9 - BRONCHIECTASIS, UNCOMPLICATED (3) Asthma Code(s): J45.909 - UNSPECIFIED ASTHMA, UNCOMPLICATED (4) Constipation Code(s): K59.00 - CONSTIPATION, UNSPECIFIED Assessment/Plan IMP: Findings on CT consistent with a chronic process. Do not feel there is an acute pulmonary process at this time. CT Abdomen/Pelvis in 09/21 does reveal chronic changes on the visualized lung windows. Findings could be consistent with an old granulomatous process Will need to get further details from the patients family and any providers she may have in the community O2 as needed Outpatient PFTs would be useful No smoking BD TX PRN No indication for systemic steroids at this time Will follow Thank you. Dr Gamez
--- NOTE | 2019-09-04 16:13 | PN ---
Physical Exam: SUBJECTIVE: Patient seen and examined. She says she is voiding and moving her bowels. OBJECTIVE: Vital Signs Period Temp Pulse Resp BP Sys/Stanton Pulse Ox Last 24 Hr 98.3 F-101 F 69-89 18-20 122-138/52-70 94-95 GENERAL: The patient is awake, alert, and fully oriented, in no acute distress. LUNGS: Breath sounds equal, bilateral crackles, no wheezes, no accessory muscle use. HEART: Regular rate and rhythm, S1, S2 without murmur, rub or gallop. ABDOMEN: Soft, nontender, nondistended, normoactive bowel sounds, no guarding, no rebound, no hepatosplenomegaly, no masses. EXTREMITIES: 2+ pulses, warm, well-perfused, no edema. Laboratory Results - last 24 hr 09/03/19 09/04/19 19:40 06:07 POC Glucometer 145 93 Active Medications Generic Name Dose Route Start Last Admin Trade Name Freq PRN Reason Stop Dose Admin Acetaminophen 650 mg 09/02/19 03:39 Tylenol - PO Q4H PRN PAIN LEVEL 6-10 Albuterol Sulfate 1 amp 09/02/19 03:39 09/03/19 21:12 Ventolin 0.083% Nebulizer Soln - NEB 1 amp Q4H PRN Administration SHORT OF BREATH/WHEEZING Amlodipine Besylate 10 mg 09/03/19 10:00 09/04/19 09:42 Norvasc - PO 10 mg DAILY CHELO Administration Aspirin 81 mg 09/03/19 10:00 09/04/19 09:41 Asa - PO 81 mg DAILY CHELO Administration Atorvastatin Calcium 10 mg 09/02/19 22:00 09/03/19 21:42 Lipitor - PO Not Given HS CHELO Budesonide/Formoterol Fumarate 2 puff 09/02/19 22:00 09/04/19 09:43 Symbicort 160/4.5mcg - IH 2 puff BID CHELO Administration Calcium Carbonate/Cholecalciferol 1 tab 09/02/19 22:00 09/04/19 09:42 Os-Dallin 500+D - PO 1 tab BID CHELO Administration Docusate Sodium 100 mg 09/02/19 14:00 09/04/19 14:31 Colace - PO 100 mg TID CHELO Administration Fluoxetine HCl 10 mg 09/03/19 10:00 09/04/19 09:42 Prozac - PO 10 mg DAILY CHELO Administration Ibuprofen 400 mg 09/04/19 09:03 09/04/19 09:41 Motrin - PO 400 mg Q6H PRN Administration PAIN LEVEL 1-5 Montelukast Sodium 10 mg 09/03/19 10:00 09/04/19 09:42 Singulair - PO 10 mg DAILY CHELO Administration Pwfwo-6-Esha Ethyl Esters 1 gm 09/02/19 22:00 09/04/19 09:41 Lovaza - PO 1 gm BID CHELO Administration Pantoprazole Sodium 40 mg 09/03/19 10:00 09/04/19 09:41 Protonix - PO 40 mg DAILY CHELO Administration Polyethylene Glycol 17 gm 09/02/19 13:28 Miralax (For Daily Use) - PO DAILY PRN CONSTIPATION Prochlorperazine Edisylate 2.5 mg 09/02/19 04:15 09/02/19 06:40 Compazine Injection - IVPB 2.5 mg Q4H PRN Administration NAUSEA AND/OR VOMITING Senna 2 tab 09/02/19 22:00 09/03/19 21:42 Senna - PO Not Given HS CHELO Valsartan 80 mg 09/03/19 10:00 09/04/19 09:42 Diovan - PO 80 mg DAILY CHELO Administration ASSESSMENT/PLAN: This is a 74 year old woman with a history of HTN, asthma, appendectomy who presented to the ED with abdominal pain, constipation, vomiting, and difficulty urinating. 1. Abdominal pain with vomiting - Likely secondary to constipation/fecal retention - Improved once she had bowel movement after mineral oil enema - No evidence of bowel obstruction - Continue Colace, Senna, Miralax as needed 2. Urinary retention - Likely secondary to fecal retention and large uterine fibroid - Improved - Clement catheter removed 3. Hypokalemia - Replete potassium as needed 4. Dehydration - Improved 5. Uterine fibroid - Outpatient dairy lab technician follow-up 6. 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 on CT - MRCP shows mildly distended gallbladder with slight prominence of proximal CBD - Outpatient GI evaluation 7. Bilateral renal cortical cysts 8. Diverticulosis 9. Asthma, possible interstitial lung disease - Chest CT shows extensive chronic lung disease with upper lobe fibrosis, bronchiectasis, and calcifications suggestive of prior granulomatous disease - Pulmonary input appreciated - Continue Symbicort, Singulair 10. Leukopenia, thrombocytopenia - Heme-onc consult input appreciated 11. Acute kidney injury secondary to dehydration, obstructive uropathy - Improved 12. HTN - Continue Jada Villarreal 13. Hyperlipidemia - Continue Aleyda Lara Visit type - Emergency Visit Emergency Visit: Yes ED Registration Date: 09/02/19 Care time: The patient presented to the Emergency Department on the above date and was hospitalized for further evaluation of their emergent condition. - New Patient This patient is new to me today: No - Critical Care Critical Care patient: No - Discharge Referral Referred to [facility] No
--- NOTE | 2019-09-04 17:29 | PN ---
Teaching Attending Note Name of Resident: Russel Bear ATTENDING PHYSICIAN STATEMENT I saw and evaluated the patient. I reviewed the resident's note and discussed the case with the resident. I agree with the resident's findings and plan as documented. ASSESSMENT AND PLAN: 74 year old female with a past medical history of asthma, HTN, DM, uterine fibroids admitted for acute urinary retention.we were consulted for leukopenia and thrmobocytopenia CT c/a/p --chronic fibrosis, bronchiectasis, b/l upper lobes, mild mediastinal adenipathy, fatty liver, dilated CBD/pancreatic duct ? MRCP/ degenerating leiomyoma MRI -- mild prominence of proximal CBD which is more borderline distally LEukopnia/thrombocytopenia--mild ? occult infection. Recheck U/A, urine cx chek B12/folate/TSH/fT4/LDH/ESR/CRP/protein studies/ flow Monitor
[2019-09-04 20:18] LABS: EPI CELLS 0.2 /HPF (0-5/HPF); HYALINE CASTS 0 /lpf (0-8); PH,URINE 6.5 (5.0-8.0); URINE APPEARANCE CLEAR; URINE BACTERIA 77.7 /hpf (NEGATIVE); URINE BILIRUBIN NEGATIVE (NEGATIVE); URINE COLOR YELLOW; URINE GLUCOSE (UA) NEGATIVE (NEGATIVE); URINE KETONE NEGATIVE (NEGATIVE); URINE LEUK ESTERASE 2+ (NEGATIVE); URINE NITRITE NEGATIVE (NEGATIVE); URINE PROTEIN TRACE (NEGATIVE); URINE RBC 1 /hpf (0-4); URINE WBC 38 /hpf (0-5)
[2019-09-04] MEDS: ATORVASTATIN CA 10 MG TABLET (FP) PO SCH (21:33)
[2019-09-04] MEDS: SENNOSIDES 8.6MG TABLET (FP) PO SCH (21:33)
[2019-09-05] MEDS: DOCUSATE SODIUM 100 MG CAPSULE (FP) PO SCH ×3 (05:47→22:09)
[2019-09-05 07:41] LABS: BASO % 0.5 % (0-2.0); EOS % 0.4 % (0-4.5); HEMATOCRIT 35.5 % (32.4-45.2); HEMOGLOBIN 11.9 GM/dL (10.7-15.3); LYMPH % 26.7 % (8-40); MCH 28.8 pg (25.7-33.7); MCHC 33.6 g/dl (32.0-36.0); MEAN PLT VOLUME 9.3 fl (7.5-11.1); NEUT % 52.4 % (42.8-82.8); PLATELET COUNT 81 K/MM3 (134-434); RBC 4.13 M/mm3 (3.60-5.2); RDW 14.4 % (11.6-15.6)
[2019-09-05 08:00] LABS: WHITE BLOOD COUNT 1.8 K/mm3 (4.0-10.0)
[2019-09-05 08:42] LABS: BLOOD UREA NITROGEN 10.6 mg/dL (7-18); CALCIUM 8.2 mg/dL (8.5-10.1); CREATININE 0.8 mg/dL (0.55-1.3); POTASSIUM 3.1 mmol/L (3.5-5.1)
[2019-09-05] MEDS ORDERED: PT OWN MED DRAWER 7, Y5N ONE ×3 (09:15→21:23)
[2019-09-05] MEDS ORDERED: POTASSIUM CHLORIDE TABS 20 MEQ TABLET.ER (FP) PO ONE (09:15)
[2019-09-05] MEDS: BUDESONIDE/FORMETEROL FUMARATE 160/4.5 mcg INHALER IH SCH ×2 (09:19→22:10)
[2019-09-05] MEDS: MONTELUKAST NA 10 MG TABLET PO SCH (09:20)
[2019-09-05] MEDS: amLODIPine BESYLATE 10 MG TABLET (FP) PO SCH (09:20)
[2019-09-05] MEDS: CALCIUM 500MG/VIT-D 200 UNITS COMBO TABLET (FP) PO SCH ×2 (09:20→22:09)
[2019-09-05] MEDS: ASPIRIN 81 MG CHEWABLE TABLETS PO SCH (09:20)
[2019-09-05] MEDS: FLUoxetine HCL 10 MG CAPSULE (FP) PO SCH (09:20)
[2019-09-05] MEDS: OMEGA-3 ACID ETHYL ESTERS (FATTY-ACIDS) 1 GM CAPSULE (FP) PO SCH ×2 (09:20→22:09)
[2019-09-05] MEDS: PANTOPRAZOLE 40 MG TABLET (FP) PO SCH (09:20)
[2019-09-05] MEDS: VALSARTAN 80 MG TABLET (UD) PO SCH (09:21)
[2019-09-05 10:01] LABS: MAGNESIUM 2.1 mg/dL (1.8-2.4)
--- NOTE | 2019-09-05 11:18 | PN ---
Progress Note (short form) - Note Progress Note: PULMONARY Reports some cough with yellow sputum. No fevers. Vital Signs Period Temp Pulse Resp BP Sys/Stanton Pulse Ox Last 24 Hr 97.7 F-98.5 F 64-72 20-20 109-147/46-77 95 Gen: NAD at rest Heart: RRR Lung: scattered rhonchi Abd: soft, nontender Ext: no edema CBC, BMP 09/05/19 06:15 09/05/19 06:15 Active Medications Acetaminophen (Tylenol -) 650 mg PO Q4H PRN PRN Reason: PAIN LEVEL 6-10 Albuterol Sulfate (Ventolin 0.083% Nebulizer Soln -) 1 amp NEB Q4H PRN PRN Reason: SHORT OF BREATH/WHEEZING Last Admin: 09/03/19 21:12 Dose: 1 amp Amlodipine Besylate (Norvasc -) 10 mg PO DAILY [facility] Last Admin: 09/05/19 09:20 Dose: 10 mg Aspirin (Asa -) 81 mg PO DAILY [facility] Last Admin: 09/05/19 09:20 Dose: 81 mg Atorvastatin Calcium (Lipitor -) 10 mg PO HS [facility] Last Admin: 09/04/19 21:33 Dose: 10 mg Budesonide/Formoterol Fumarate (Symbicort 160/4.5mcg -) 2 puff IH BID [facility] Last Admin: 09/05/19 09:19 Dose: 2 puff Calcium Carbonate/Cholecalciferol (Os-Dallin 500+D -) 1 tab PO BID [facility] Last Admin: 09/05/19 09:20 Dose: 1 tab Docusate Sodium (Colace -) 100 mg PO TID [facility] Last Admin: 09/05/19 05:47 Dose: 100 mg Fluoxetine HCl (Prozac -) 10 mg PO DAILY [facility] Last Admin: 09/05/19 09:20 Dose: 10 mg Ibuprofen (Motrin -) 400 mg PO Q6H PRN PRN Reason: PAIN LEVEL 1-5 Last Admin: 09/04/19 09:41 Dose: 400 mg Montelukast Sodium (Singulair -) 10 mg PO DAILY [facility] Last Admin: 09/05/19 09:20 Dose: 10 mg [id number] Ethyl Esters (Lovaza -) 1 gm PO BID [facility] Last Admin: 09/05/19 09:20 Dose: 1 gm Pantoprazole Sodium (Protonix -) 40 mg PO DAILY [facility] Last Admin: 09/05/19 09:20 Dose: 40 mg Polyethylene Glycol (Miralax (For Daily Use) -) 17 gm PO DAILY PRN PRN Reason: CONSTIPATION Prochlorperazine Edisylate (Compazine Injection -) 2.5 mg IVPB Q4H PRN PRN Reason: NAUSEA AND/OR VOMITING Last Admin: 09/02/19 06:40 Dose: 2.5 mg Senna (Senna -) 2 tab PO HS [facility] Last Admin: 09/04/19 21:33 Dose: 2 tab Valsartan (Diovan -) 80 mg PO DAILY [facility] Last Admin: 09/05/19 09:21 Dose: 80 mg A/P Bronchiectasis Asthma Leukopenia Thrombocytopenia r/o UTI HTN Hyperlipidemia - CT chest findings likely chronic, 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
[2019-09-05 11:36] LABS: ANISOCYTOSIS 0; MACROCYTOSIS 0; PLATELET ESTIMATE DECREASED
--- NOTE | 2019-09-05 13:01 | PN ---
Physical Exam: SUBJECTIVE: Patient seen and examined no fever , chills reported denies any hematuria or melena no new complains OBJECTIVE: Vital Signs Period Temp Pulse Resp BP Sys/Stanton Pulse Ox Last 24 Hr 97.7 F-98.5 F 64-72 20-20 109-147/46-77 95 GENERAL:Ao3 in NAD HEAD: NC/At EYES: ISAIAS< EOMI sclera anicteric, conjunctiva clear. ENT: Moist mucous membranes.no mucositis , or oral thrush noted , throat erythema NECK: NC/AT , no lyphadenopathy , Breast : no masses palpated nodes: no submandibular , axillary or inguinal lymph nodes palpated LUNGS: scattered rhonchi. No wheezes, HEART: Regular rate and rhythm, normal S1 and S2 without murmur, rub or gallop. ABDOMEN: Soft, nontender, not distended, normoactive bowel sounds, no guarding, no rebound, LOWER EXTREMITIES: 2+ pulses, warm, well-perfused. No calf tenderness. No peripheral edema. NEUROLOGICAL: Cranial nerves II-XII intact. Normal speech. PSYCHIATRIC: Cooperative. Good eye contact. Appropriate mood and affect. SKIN: Warm, dry, normal turgor, Laboratory Results - last 24 hr 09/04/19 09/04/19 09/05/19 17:16 19:00 05:50 WBC RBC Hgb Hct MCV MCH MCHC RDW Plt Count MPV Absolute Neuts (auto) Neutrophils % Neutrophils % (Manual) Band Neutrophils % Lymphocytes % Lymphocytes % (Manual) Monocytes % Monocytes % (Manual) Eosinophils % Eosinophils % (Manual) Basophils % Basophils % (Manual) Myelocytes % (Man) Promyelocytes % (Man) Blast Cells % (Manual) Nucleated RBC % Metamyelocytes Hypochromia Platelet Estimate Platelet Comment Polychromasia Poikilocytosis Anisocytosis Microcytosis Macrocytosis ESR Sodium Potassium Chloride Carbon Dioxide Anion Gap BUN Creatinine Est GFR (CKD-EPI)AfAm Est GFR (CKD-EPI)NonAf POC Glucometer 93 93 Random Glucose Calcium Magnesium LD Total C-Reactive Protein Vitamin B12 TSH Free T4 Urine Color Yellow Urine Appearance Clear Urine pH 6.5 Ur Specific [place] 1.006 L Urine Protein Trace Urine Glucose (UA) Negative Urine Ketones Negative Urine Blood Negative Urine Nitrite Negative Urine Bilirubin Negative Urine Urobilinogen 1.0 Ur Leukocyte Esterase 2+ H Urine WBC (Auto) 38 Urine RBC (Auto) 1 Urine Casts (Auto) 0 U Epithel Cells (Auto) 0.2 Urine Bacteria (Auto) 77.7 09/05/19 09/05/19 09/05/19 06:15 06:15 06:15 WBC 1.8 L* RBC 4.13 Hgb 11.9 Hct 35.5 MCV 86.0 MCH 28.8 MCHC 33.6 RDW 14.4 Plt Count 81 L D MPV 9.3 Absolute Neuts (auto) 0.9 L Neutrophils % 52.4 Neutrophils % (Manual) 48.0 Band Neutrophils % 0.0 Lymphocytes % 26.7 D Lymphocytes % (Manual) 31.2 Monocytes % 20.0 H D Monocytes % (Manual) 13 H Eosinophils % 0.4 D Eosinophils % (Manual) 0.0 Basophils % 0.5 Basophils % (Manual) 1.3 Myelocytes % (Man) 0 Promyelocytes % (Man) 0 Blast Cells % (Manual) 0 Nucleated RBC % 0 Metamyelocytes 0 Hypochromia 0 Platelet Estimate Decreased Platelet Comment Present Polychromasia 0 Poikilocytosis 0 Anisocytosis 0 Microcytosis 0 Macrocytosis 0 ESR Sodium 134 L Potassium 3.1 L Chloride 98 Carbon Dioxide 29 Anion Gap 8 BUN 10.6 Creatinine 0.8 Est GFR (CKD-EPI)AfAm 83.00 Est GFR (CKD-EPI)NonAf 71.61 POC Glucometer Random Glucose 90 Calcium 8.2 L Magnesium 2.1 LD Total 249 H C-Reactive Protein 3.1 H Vitamin B12 1911 H TSH 5.67 H Free T4 Urine Color Urine Appearance Urine pH Ur Specific [place] Urine Protein Urine Glucose (UA) Urine Ketones Urine Blood Urine Nitrite Urine Bilirubin Urine Urobilinogen Ur Leukocyte Esterase Urine WBC (Auto) Urine RBC (Auto) Urine Casts (Auto) U Epithel Cells (Auto) Urine Bacteria (Auto) 09/05/19 09/05/19 06:15 06:15 WBC RBC Hgb Hct MCV MCH MCHC RDW Plt Count MPV Absolute Neuts (auto) Neutrophils % Neutrophils % (Manual) Band Neutrophils % Lymphocytes % Lymphocytes % (Manual) Monocytes % Monocytes % (Manual) Eosinophils % Eosinophils % (Manual) Basophils % Basophils % (Manual) Myelocytes % (Man) Promyelocytes % (Man) Blast Cells % (Manual) Nucleated RBC % Metamyelocytes Hypochromia Platelet Estimate Platelet Comment Polychromasia Poikilocytosis Anisocytosis Microcytosis Macrocytosis ESR 24 Sodium Potassium Chloride Carbon Dioxide Anion Gap BUN Creatinine Est GFR (CKD-EPI)AfAm Est GFR (CKD-EPI)NonAf POC Glucometer Random Glucose Calcium Magnesium LD Total C-Reactive Protein Vitamin B12 TSH Free T4 1.34 Urine Color Urine Appearance Urine pH Ur Specific [place] Urine Protein Urine Glucose (UA) Urine Ketones Urine Blood Urine Nitrite Urine Bilirubin Urine Urobilinogen Ur Leukocyte Esterase Urine WBC (Auto) Urine RBC (Auto) Urine Casts (Auto) U Epithel Cells (Auto) Urine Bacteria (Auto) Active Medications Generic Name Dose Route Start Last Admin Trade Name Freq PRN Reason Stop Dose Admin Acetaminophen 650 mg 09/02/19 03:39 Tylenol - PO Q4H PRN PAIN LEVEL 6-10 Albuterol Sulfate 1 amp 09/02/19 03:39 09/03/19 21:12 Ventolin 0.083% Nebulizer Soln - NEB 1 amp Q4H PRN Administration SHORT OF BREATH/WHEEZING Amlodipine Besylate 10 mg 09/03/19 10:00 09/05/19 09:20 Norvasc - PO 10 mg DAILY [facility] Administration Aspirin 81 mg 09/03/19 10:00 09/05/19 09:20 Asa - PO 81 mg DAILY [facility] Administration Atorvastatin Calcium 10 mg 09/02/19 22:00 09/04/19 21:33 Lipitor - PO 10 mg HS [facility] Administration Budesonide/Formoterol Fumarate 2 puff 09/02/19 22:00 09/05/19 09:19 Symbicort 160/4.5mcg - IH 2 puff BID [facility] Administration Calcium Carbonate/Cholecalciferol 1 tab 09/02/19 22:00 09/05/19 09:20 Os-Dallin 500+D - PO 1 tab BID [facility] Administration Docusate Sodium 100 mg 09/02/19 14:00 09/05/19 05:47 Colace - PO 100 mg TID [facility] Administration Fluoxetine HCl 10 mg 09/03/19 10:00 09/05/19 09:20 Prozac - PO 10 mg DAILY [facility] Administration Ceftriaxone Sodium 1 gm/ 50 mls @ 100 mls/hr 09/05/19 11:30 Dextrose IVPB DAILY [facility] Ibuprofen 400 mg 09/04/19 09:03 09/04/19 09:41 Motrin - PO 400 mg Q6H PRN Administration PAIN LEVEL 1-5 Montelukast Sodium 10 mg 09/03/19 10:00 09/05/19 09:20 Singulair - PO 10 mg DAILY [facility] Administration [id number] Ethyl Esters 1 gm 09/02/19 22:00 09/05/19 09:20 Lovaza - PO 1 gm BID [facility] Administration Pantoprazole Sodium 40 mg 09/03/19 10:00 09/05/19 09:20 Protonix - PO 40 mg DAILY [facility] Administration Polyethylene Glycol 17 gm 09/02/19 13:28 Miralax (For Daily Use) - PO DAILY PRN CONSTIPATION Prochlorperazine Edisylate 2.5 mg 09/02/19 04:15 09/02/19 06:40 Compazine Injection - IVPB 2.5 mg Q4H PRN Administration NAUSEA AND/OR VOMITING Senna 2 tab 09/02/19 22:00 09/04/19 21:33 Senna - PO 2 tab HS [facility] Administration Valsartan 80 mg 09/03/19 10:00 09/05/19 09:21 Diovan - PO 80 mg DAILY [facility] Administration CBC, BMP 09/05/19 06:15 09/05/19 06:15 ASSESSMENT/PLAN:primary note pending discussion with attending Boy Calderon is a 74 year old female with a past medical history of asthma, HTN, DM , uterine fibroids admitted for acute urinary retention.we were consulted for leukopenia and thrmobocytopenia # Leuckopenia send flow cytometry , fish and cytogenetics , * US positive, started on ceftriaxone by Dr Ng #Thrombocytopenia * Platelets 109....81 today, chronic, no active bleeding , monitor for now * transfuse if below 10 K * hold asa for plt below 50 K * chek B12/folate/TSH/fT4/LDH/ESR/CRP/protein studies/ * sullivan cx 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 , MRCP reviewed , Gi consulted #Bilateral renal cortical cysts, nephrology consulted #Asthma and interstitial lung disease Chest CT: chronic lung disease with upper lobe fibrosis, broncheictasis, and calcifications #Acute urinary retention and constipation #DM #HLD #HTN #DVT PPx #Uterine fibroid # Monitor lytes # Hypoglycemia - Gynecology consulted, recs appreciated, will follow up outpatient for fibroids ATTENDING PHYSICIAN STATEMENT I saw and evaluated the patient. I reviewed the resident's note and discussed the case with the resident. I agree with the resident's findings and plan as documented. SUBJECTIVE: OBJECTIVE: ASSESSMENT AND PLAN:
--- NOTE | 2019-09-05 13:29 | PN ---
Physical Exam: SUBJECTIVE: Patient seen and examined at the bedside. Patient noting that she feels that she only urinates very little. Denies dysuria, hematuria, urgency, frequency. States she has normal bowel movements. Otherwise denies cp, sob, abd pain, n/v/c/d, fever, chills, headaches, numbness, tingling. OBJECTIVE: Vital Signs Period Temp Pulse Resp BP Sys/Stanton Pulse Ox Last 24 Hr 97.7 F-98.5 F 64-72 20-20 109-147/46-77 95 GENERAL: The patient is awake, alert, and fully oriented, in no acute distress. EYES: PERRL, extraocular movements intact, sclera anicteric, conjunctiva clear. ENT: Oropharynx clear without exudates, moist mucous membranes. LUNGS: Breath sounds equal, coarse breath sounds throughout, no wheezes auscultated, no accessory muscle use. HEART: Regular rate and rhythm, S1, S2 without murmur, rub. ABDOMEN: Soft, non-tender, nondistended, normoactive bowel sounds, no guarding, no rebound, no masses. EXTREMITIES: 2+ pulses, warm, well-perfused, no edema. NEUROLOGICAL: Cranial nerves II through XII grossly intact. 5/5 muscle strength bilaterally upper and lower extremities. PSYCH: Normal mood, normal affect. SKIN: Warm, dry, normal turgor, no rashes or lesions noted Laboratory Results - last 24 hr 09/04/19 09/04/19 09/05/19 17:16 19:00 05:50 WBC RBC Hgb Hct MCV MCH MCHC RDW Plt Count MPV Absolute Neuts (auto) Neutrophils % Neutrophils % (Manual) Band Neutrophils % Lymphocytes % Lymphocytes % (Manual) Monocytes % Monocytes % (Manual) Eosinophils % Eosinophils % (Manual) Basophils % Basophils % (Manual) Myelocytes % (Man) Promyelocytes % (Man) Blast Cells % (Manual) Nucleated RBC % Metamyelocytes Hypochromia Platelet Estimate Platelet Comment Polychromasia Poikilocytosis Anisocytosis Microcytosis Macrocytosis ESR Sodium Potassium Chloride Carbon Dioxide Anion Gap BUN Creatinine Est GFR (CKD-EPI)AfAm Est GFR (CKD-EPI)NonAf POC Glucometer 93 93 Random Glucose Calcium Magnesium LD Total C-Reactive Protein Vitamin B12 TSH Free T4 Urine Color Yellow Urine Appearance Clear Urine pH 6.5 Ur Specific [place] 1.006 L Urine Protein Trace Urine Glucose (UA) Negative Urine Ketones Negative Urine Blood Negative Urine Nitrite Negative Urine Bilirubin Negative Urine Urobilinogen 1.0 Ur Leukocyte Esterase 2+ H Urine WBC (Auto) 38 Urine RBC (Auto) 1 Urine Casts (Auto) 0 U Epithel Cells (Auto) 0.2 Urine Bacteria (Auto) 77.7 09/05/19 09/05/19 09/05/19 06:15 06:15 06:15 WBC 1.8 L* RBC 4.13 Hgb 11.9 Hct 35.5 MCV 86.0 MCH 28.8 MCHC 33.6 RDW 14.4 Plt Count 81 L D MPV 9.3 Absolute Neuts (auto) 0.9 L Neutrophils % 52.4 Neutrophils % (Manual) 48.0 Band Neutrophils % 0.0 Lymphocytes % 26.7 D Lymphocytes % (Manual) 31.2 Monocytes % 20.0 H D Monocytes % (Manual) 13 H Eosinophils % 0.4 D Eosinophils % (Manual) 0.0 Basophils % 0.5 Basophils % (Manual) 1.3 Myelocytes % (Man) 0 Promyelocytes % (Man) 0 Blast Cells % (Manual) 0 Nucleated RBC % 0 Metamyelocytes 0 Hypochromia 0 Platelet Estimate Decreased Platelet Comment Present Polychromasia 0 Poikilocytosis 0 Anisocytosis 0 Microcytosis 0 Macrocytosis 0 ESR Sodium 134 L Potassium 3.1 L Chloride 98 Carbon Dioxide 29 Anion Gap 8 BUN 10.6 Creatinine 0.8 Est GFR (CKD-EPI)AfAm 83.00 Est GFR (CKD-EPI)NonAf 71.61 POC Glucometer Random Glucose 90 Calcium 8.2 L Magnesium 2.1 LD Total 249 H C-Reactive Protein 3.1 H Vitamin B12 1911 H TSH 5.67 H Free T4 Urine Color Urine Appearance Urine pH Ur Specific [place] Urine Protein Urine Glucose (UA) Urine Ketones Urine Blood Urine Nitrite Urine Bilirubin Urine Urobilinogen Ur Leukocyte Esterase Urine WBC (Auto) Urine RBC (Auto) Urine Casts (Auto) U Epithel Cells (Auto) Urine Bacteria (Auto) 09/05/19 09/05/19 06:15 06:15 WBC RBC Hgb Hct MCV MCH MCHC RDW Plt Count MPV Absolute Neuts (auto) Neutrophils % Neutrophils % (Manual) Band Neutrophils % Lymphocytes % Lymphocytes % (Manual) Monocytes % Monocytes % (Manual) Eosinophils % Eosinophils % (Manual) Basophils % Basophils % (Manual) Myelocytes % (Man) Promyelocytes % (Man) Blast Cells % (Manual) Nucleated RBC % Metamyelocytes Hypochromia Platelet Estimate Platelet Comment Polychromasia Poikilocytosis Anisocytosis Microcytosis Macrocytosis ESR 24 Sodium Potassium Chloride Carbon Dioxide Anion Gap BUN Creatinine Est GFR (CKD-EPI)AfAm Est GFR (CKD-EPI)NonAf POC Glucometer Random Glucose Calcium Magnesium LD Total C-Reactive Protein Vitamin B12 TSH Free T4 1.34 Urine Color Urine Appearance Urine pH Ur Specific [place] Urine Protein Urine Glucose (UA) Urine Ketones Urine Blood Urine Nitrite Urine Bilirubin Urine Urobilinogen Ur Leukocyte Esterase Urine WBC (Auto) Urine RBC (Auto) Urine Casts (Auto) U Epithel Cells (Auto) Urine Bacteria (Auto) Active Medications Generic Name Dose Route Start Last Admin Trade Name Freq PRN Reason Stop Dose Admin Acetaminophen 650 mg 09/02/19 03:39 Tylenol - PO Q4H PRN PAIN LEVEL 6-10 Albuterol Sulfate 1 amp 09/02/19 03:39 09/03/19 21:12 Ventolin 0.083% Nebulizer Soln - NEB 1 amp Q4H PRN Administration SHORT OF BREATH/WHEEZING Amlodipine Besylate 10 mg 09/03/19 10:00 09/05/19 09:20 Norvasc - PO 10 mg DAILY [facility] Administration Aspirin 81 mg 09/03/19 10:00 09/05/19 09:20 Asa - PO 81 mg DAILY [facility] Administration Atorvastatin Calcium 10 mg 09/02/19 22:00 09/04/19 21:33 Lipitor - PO 10 mg HS [facility] Administration Budesonide/Formoterol Fumarate 2 puff 09/02/19 22:00 09/05/19 09:19 Symbicort 160/4.5mcg - IH 2 puff BID [facility] Administration Calcium Carbonate/Cholecalciferol 1 tab 09/02/19 22:00 09/05/19 09:20 Os-Dallin 500+D - PO 1 tab BID [facility] Administration Docusate Sodium 100 mg 09/02/19 14:00 09/05/19 05:47 Colace - PO 100 mg TID [facility] Administration Fluoxetine HCl 10 mg 09/03/19 10:00 09/05/19 09:20 Prozac - PO 10 mg DAILY [facility] Administration Ceftriaxone Sodium 1 gm/ 50 mls @ 100 mls/hr 09/05/19 11:30 Dextrose IVPB DAILY [facility] Ibuprofen 400 mg 09/04/19 09:03 09/04/19 09:41 Motrin - PO 400 mg Q6H PRN Administration PAIN LEVEL 1-5 Montelukast Sodium 10 mg 09/03/19 10:00 09/05/19 09:20 Singulair - PO 10 mg DAILY [facility] Administration [id number]-2-Ecws Ethyl Esters 1 gm 09/02/19 22:00 09/05/19 09:20 Lovaza - PO 1 gm BID [facility] Administration Pantoprazole Sodium 40 mg 09/03/19 10:00 09/05/19 09:20 Protonix - PO 40 mg DAILY [facility] Administration Polyethylene Glycol 17 gm 09/02/19 13:28 Miralax (For Daily Use) - PO DAILY PRN CONSTIPATION Prochlorperazine Edisylate 2.5 mg 09/02/19 04:15 09/02/19 06:40 Compazine Injection - IVPB 2.5 mg Q4H PRN Administration NAUSEA AND/OR VOMITING Senna 2 tab 09/02/19 22:00 09/04/19 21:33 Senna - PO 2 tab HS [facility] Administration Valsartan 80 mg 09/03/19 10:00 09/05/19 09:21 Diovan - PO 80 mg DAILY [facility] Administration ASSESSMENT/PLAN: Boy Calderon is a 74 year old female with a past medical history of asthma, HTN, DM , uterine fibroids admitted for acute urinary retention. Acute urinary retention and constipation - CT noting enlarged uterus with fibroids - compazine 2.5mg Q4h for nausea - high fiber diet - post-void residual to be measured - bowel regimen with senna, colace, and miralax - [place] Head consult, recs appreciated, no acute intervention and fibroids not causing retention or constipation - patient on 3 medications that can cause urinary retention (oxybutinin, solfenacin, levoceterazine), held for now - PT eval, patient walked 200ft Uterine fibroid - Gynecology consulted, recs appreciated, will follow up outpatient for fibroids Thrombocytopenia/Leukopenia - Platelets 81 today, WBC 1.8 - Heme Onc consulted, recs appreciated - as per Heme Onc, likely due to infection, continue treatment of UTI - elevated LDH, elevated TSH, normal T4, elevated B12, pending folate - pending protein studies 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 - currently asx, w/o changes in LFTs - MRCP noting mildly distended gallbladder with slight prominence of the proximal common bile duct. No dilation of intrahepatic and pancreatic ducts - will need outpatient GI follow up Bilateral renal cortical cysts - monitor as pt is asymptomatic - will require outpatient follow up with nephrology Asthma and interstitial lung disease - Chest CT noting extensive chronic lung disease with upper lobe fibrosis, broncheictasis, and calcifications - continue home inhalers - pulmonology consulted, recs appreciated - will need outpatient PFTs and chest imaging Positive UA - UA showing signs of infection - started on ceftriaxone - pending urine cultures DM - random blood glucose within normal limits - A1c 5.8 HLD - continue home simvastatin and Vascepa HTN - continue home amlodipine DVT PPx - SCDs due to low platelets FEN - no standing fluids, encourage PO intake - continue to monitor electrolytes and replete as necessary, hypokalemia noted and repleted - High fiber diet Dispo - continue to monitor on Med-surg Visit type - Emergency Visit Emergency Visit: Yes ED Registration Date: 09/02/19 Care time: The patient presented to the Emergency Department on the above date and was hospitalized for further evaluation of their emergent condition. - New Patient This patient is new to me today: No - Critical Care Critical Care patient: No
[2019-09-05] MEDS ORDERED: DEXTROSE 5%-WATER - 50 ML IVPB ONE (13:59)
[2019-09-05] MEDS ORDERED: cefTRIAXone SODIUM 1 GM VIAL ONE (13:59)
[2019-09-05] MEDS: CEFTRIAXONE 1 GM in DEXTROSE 5%-WATER - 50 ML IVPB SCH (14:17)
--- NOTE | 2019-09-05 16:29 | PN ---
Teaching Attending Note Name of Resident: Jamie Cruz ATTENDING PHYSICIAN STATEMENT I saw and evaluated the patient. I reviewed the resident's note and discussed the case with the resident. I agree with the resident's findings and plan as documented. SUBJECTIVE: Feeling well. Passing urine and stool. No urinary or bowel issues. OBJECTIVE: Afebrile, Hemodynamically Stable. Last Vital Signs Temp Pulse Resp BP Pulse Ox 98.7 F 65 20 126/58 L 96 09/05/19 15:05 09/05/19 15:05 09/05/19 15:05 09/05/19 15:05 09/05/19 10:15 GENERAL: AAO x 3. Comfortable. HEART: S1, S2, SM LUNGS: bibasal crackles ABDOMEN: Soft, nontender. Bowel Sounds normal. EXTREMITIES: no edema, no calf tenderness. Laboratory Results - last 24 hr 09/04/19 09/04/19 09/05/19 17:16 19:00 05:50 WBC RBC Hgb Hct MCV MCH MCHC RDW Plt Count MPV Absolute Neuts (auto) Neutrophils % Neutrophils % (Manual) Band Neutrophils % Lymphocytes % Lymphocytes % (Manual) Monocytes % Monocytes % (Manual) Eosinophils % Eosinophils % (Manual) Basophils % Basophils % (Manual) Myelocytes % (Man) Promyelocytes % (Man) Blast Cells % (Manual) Nucleated RBC % Metamyelocytes Hypochromia Platelet Estimate Platelet Comment Polychromasia Poikilocytosis Anisocytosis Microcytosis Macrocytosis ESR Sodium Potassium Chloride Carbon Dioxide Anion Gap BUN Creatinine Est GFR (CKD-EPI)AfAm Est GFR (CKD-EPI)NonAf POC Glucometer 93 93 Random Glucose Calcium Magnesium LD Total C-Reactive Protein Vitamin B12 TSH Free T4 Urine Color Yellow Urine Appearance Clear Urine pH 6.5 Ur Specific [place] 1.006 L Urine Protein Trace Urine Glucose (UA) Negative Urine Ketones Negative Urine Blood Negative Urine Nitrite Negative Urine Bilirubin Negative Urine Urobilinogen 1.0 Ur Leukocyte Esterase 2+ H Urine WBC (Auto) 38 Urine RBC (Auto) 1 Urine Casts (Auto) 0 U Epithel Cells (Auto) 0.2 Urine Bacteria (Auto) 77.7 09/05/19 09/05/19 09/05/19 06:15 06:15 06:15 WBC 1.8 L* RBC 4.13 Hgb 11.9 Hct 35.5 MCV 86.0 MCH 28.8 MCHC 33.6 RDW 14.4 Plt Count 81 L D MPV 9.3 Absolute Neuts (auto) 0.9 L Neutrophils % 52.4 Neutrophils % (Manual) 48.0 Band Neutrophils % 0.0 Lymphocytes % 26.7 D Lymphocytes % (Manual) 31.2 Monocytes % 20.0 H D Monocytes % (Manual) 13 H Eosinophils % 0.4 D Eosinophils % (Manual) 0.0 Basophils % 0.5 Basophils % (Manual) 1.3 Myelocytes % (Man) 0 Promyelocytes % (Man) 0 Blast Cells % (Manual) 0 Nucleated RBC % 0 Metamyelocytes 0 Hypochromia 0 Platelet Estimate Decreased Platelet Comment Present Polychromasia 0 Poikilocytosis 0 Anisocytosis 0 Microcytosis 0 Macrocytosis 0 ESR Sodium 134 L Potassium 3.1 L Chloride 98 Carbon Dioxide 29 Anion Gap 8 BUN 10.6 Creatinine 0.8 Est GFR (CKD-EPI)AfAm 83.00 Est GFR (CKD-EPI)NonAf 71.61 POC Glucometer Random Glucose 90 Calcium 8.2 L Magnesium 2.1 LD Total 249 H C-Reactive Protein 3.1 H Vitamin B12 1911 H TSH 5.67 H Free T4 Urine Color Urine Appearance Urine pH Ur Specific Lud[place] Urine Protein Urine Glucose (UA) Urine Ketones Urine Blood Urine Nitrite Urine Bilirubin Urine Urobilinogen Ur Leukocyte Esterase Urine WBC (Auto) Urine RBC (Auto) Urine Casts (Auto) U Epithel Cells (Auto) Urine Bacteria (Auto) 09/05/19 09/05/19 06:15 06:15 WBC RBC Hgb Hct MCV MCH MCHC RDW Plt Count MPV Absolute Neuts (auto) Neutrophils % Neutrophils % (Manual) Band Neutrophils % Lymphocytes % Lymphocytes % (Manual) Monocytes % Monocytes % (Manual) Eosinophils % Eosinophils % (Manual) Basophils % Basophils % (Manual) Myelocytes % (Man) Promyelocytes % (Man) Blast Cells % (Manual) Nucleated RBC % Metamyelocytes Hypochromia Platelet Estimate Platelet Comment Polychromasia Poikilocytosis Anisocytosis Microcytosis Macrocytosis ESR 24 Sodium Potassium Chloride Carbon Dioxide Anion Gap BUN Creatinine Est GFR (CKD-EPI)AfAm Est GFR (CKD-EPI)NonAf POC Glucometer Random Glucose Calcium Magnesium LD Total C-Reactive Protein Vitamin B12 TSH Free T4 1.34 Urine Color Urine Appearance Urine pH Ur Specific [place] Urine Protein Urine Glucose (UA) Urine Ketones Urine Blood Urine Nitrite Urine Bilirubin Urine Urobilinogen Ur Leukocyte Esterase Urine WBC (Auto) Urine RBC (Auto) Urine Casts (Auto) U Epithel Cells (Auto) Urine Bacteria (Auto) Current Medications Generic Name Dose Route Start Last Admin Trade Name Freq PRN Reason Stop Dose Admin Acetaminophen 650 mg 09/02/19 03:39 Tylenol - PO Q4H PRN PAIN LEVEL 6-10 Albuterol Sulfate 1 amp 09/02/19 03:39 09/03/19 21:12 Ventolin 0.083% Nebulizer Soln - NEB 1 amp Q4H PRN Administration SHORT OF BREATH/WHEEZING Amlodipine Besylate 10 mg 09/03/19 10:00 09/05/19 09:20 Norvasc - PO 10 mg DAILY CHELO Administration Aspirin 81 mg 09/03/19 10:00 09/05/19 09:20 Asa - PO 81 mg DAILY CHELO Administration Atorvastatin Calcium 10 mg 09/02/19 22:00 09/04/19 21:33 Lipitor - PO 10 mg HS CHELO Administration Budesonide/Formoterol Fumarate 2 puff 09/02/19 22:00 09/05/19 09:19 Symbicort 160/4.5mcg - IH 2 puff BID CHELO Administration Calcium Carbonate/Cholecalciferol 1 tab 09/02/19 22:00 09/05/19 09:20 Os-Dallin 500+D - PO 1 tab BID CHELO Administration Docusate Sodium 100 mg 09/02/19 14:00 09/05/19 14:03 Colace - PO Not Given TID CHELO Fluoxetine HCl 10 mg 09/03/19 10:00 09/05/19 09:20 Prozac - PO 10 mg DAILY CHELO Administration Ceftriaxone Sodium 1 gm/ 50 mls @ 100 mls/hr 09/05/19 11:30 09/05/19 14:17 Dextrose IVPB 100 mls/hr DAILY CHELO Administration Ibuprofen 400 mg 09/04/19 09:03 09/04/19 09:41 Motrin - PO 400 mg Q6H PRN Administration PAIN LEVEL 1-5 Montelukast Sodium 10 mg 09/03/19 10:00 09/05/19 09:20 Singulair - PO 10 mg DAILY CHELO Administration [id number] Ethyl Esters 1 gm 09/02/19 22:00 09/05/19 09:20 Lovaza - PO 1 gm BID CHELO Administration Pantoprazole Sodium 40 mg 09/03/19 10:00 09/05/19 09:20 Protonix - PO 40 mg DAILY CHELO Administration Polyethylene Glycol 17 gm 09/02/19 13:28 Miralax (For Daily Use) - PO DAILY PRN CONSTIPATION Prochlorperazine Edisylate 2.5 mg 09/02/19 04:15 09/02/19 06:40 Compazine Injection - IVPB 2.5 mg Q4H PRN Administration NAUSEA AND/OR VOMITING Senna 2 tab 09/02/19 22:00 09/04/19 21:33 Senna - PO 2 tab HS CHELO Administration Valsartan 80 mg 09/03/19 10:00 09/05/19 09:21 Diovan - PO 80 mg DAILY CHELO Administration Home Medications Medication Instructions Recorded Albuterol Sulfate [Proair Hfa] 90 mcg IH TID 09/02/19 Amlodipine Besylate [Norvasc -] 10 mg PO DAILY 09/02/19 Aspirin [ASA -] 81 mg PO DAILY 09/02/19 Budesonide/Formeterol Fumarate 2 puff IH BID 09/02/19 [SYMBICORT 160/4.5mcg -] Calcium Carbonate/Vitamin D3 1 tablet PO BID 09/02/19 [Calcium 500-Vit D3 200 Tablet] Ergocalciferol [Vitamin D2] 50,000 unit PO WEEKLY 09/02/19 Fluoxetine HCl 10 mg PO DAILY 09/02/19 Icosapent Ethyl [Vascepa] 2 gm PO BID 09/02/19 Montelukast Na [Singulair -] 10 mg PO DAILY 09/02/19 Pantoprazole Sodium [Protonix -] 40 mg PO DAILY 09/02/19 Potassium Citrate [Potassium 15 meq PO BID 09/02/19 Citrate ER] Simvastatin 10 mg PO DAILY 09/02/19 Sodium Chloride 3 % [Sodium 750 ml IH BID 09/02/19 Chloride] Valsartan 80 mg PO DAILY 09/02/19 metFORMIN HCL [Metformin HCl] 500 mg PO DAILY 09/02/19 Docusate Sodium [Colace -] 100 mg PO TID #90 capsule 09/03/19 Polyethylene Glycol 3350 [Miralax 17 gm PO DAILY PRN #1 bottle 09/03/19 119 gm Btl -] Sennosides [Senna -] 2 tab PO HS #60 tablet 09/03/19 ASSESSMENT/PLAN: 74 year old woman with a history of HTN, asthma, s/p appendectomy, presented to the ED with abdominal pain, constipation, vomiting, and difficulty urinating. 1. Abdominal pain with vomiting - secondary to constipation/urinary retention. No evidence of bowel obstruction. Continue Colace, Senna, Miralax as needed. 2. Urinary retention - Likely secondary to fecal retention and large uterine fibroid 3. Hypokalemia - repleted. 4. Uterine Fibroid - Outpatient SERVICE DESK ANALYST follow-up. 5. 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 on CT - MRCP shows mildly distended gallbladder with slight prominence of proximal CBD - Outpatient GI evaluation. 6. Bilateral renal cortical cysts - outpatient Urology follow up. 7. Asthma, likely interstitial lung disease Chest CT shows extensive chronic lung disease with upper lobe fibrosis, bronchiectasis, and calcifications suggestive of prior granulomatous disease Pulmonary consulted - Continue Symbicort, Singulair 8. Leukopenia, Thrombocytopenia. No evidence of sepsis. Urine Cx pending. Hematology for further eval and recommendations. 9. SHERRI sec to dehydration, obstructive uropathy - improved. 10. HTN - Continue Diovan Norvasc 11. Hyperlipidemia - Continue Lipitor, Lovaza DVT Px - SCDs. Heparin held due to thrombocytopenia.
--- NOTE | 2019-09-05 18:35 | PN ---
Teaching Attending Note Name of Resident: Russel Bear ATTENDING PHYSICIAN STATEMENT I saw and evaluated the patient. I reviewed the resident's note and discussed the case with the resident. I agree with the resident's findings and plan as documented. SUBJECTIVE: Doing well voiced no new complaints OBJECTIVE: Last Vital Signs Temp Pulse Resp BP Pulse Ox 98.1 F 93 H 20 110/55 L 96 09/05/19 18:23 09/05/19 18:23 09/05/19 18:23 09/05/19 18:23 09/05/19 10:15 HEENT: MMM CVS: S1,S2 Lungs: Wheezing, mild. GAE Abd: Soft, NT, ND Skin: skin denudation in R toe Ext: No edema Neuro: Moves all extremities 09/05/19 06:15 09/05/19 06:15 ASSESSMENT AND PLAN: 74 year old lady with a past medical history of asthma, HTN, DM, uterine fibroids admitted for acute urinary retention.we were consulted for leukopenia and thrombocytopenia CT c/a/p --chronic fibrosis, bronchiectasis, b/l upper lobes, mild mediastinal adenipathy, fatty liver, dilated CBD/pancreatic duct ? MRCP/ degenerating leiomyoma MRI -- mild prominence of proximal CBD which is more borderline distally Leukopenia/thrombocytopenia- Worsening. Flow cytometry pending. Will consider Bone Marrow Examination depending on the result. Start neutropenic prophylaxis if ANC below 500 (Acyclovir, Posaconazole, Levaquin= Please review all interactions with pharmacy when ordering these medications) ? occult infection. Recheck U/A, urine cx chek B12/folate/TSH/fT4/LDH/ESR/CRP/protein studies/ flow
[2019-09-05] MEDS: ATORVASTATIN CA 10 MG TABLET (FP) PO SCH (22:10)
[2019-09-05] MEDS: SENNOSIDES 8.6MG TABLET (FP) PO SCH (22:10)
[2019-09-06] MEDS: DOCUSATE SODIUM 100 MG CAPSULE (FP) PO SCH ×2 (06:31→16:26)
[2019-09-06 08:52] VITALS: BP 121/66; PULSE 65; TEMP 98.6
[2019-09-06 09:10] LABS: BASO % 0.4 % (0-2.0); EOS % 1.6 % (0-4.5); HEMATOCRIT 36.8 % (32.4-45.2); HEMOGLOBIN 12.1 GM/dL (10.7-15.3); MCH 28.7 pg (25.7-33.7); MCHC 32.9 g/dl (32.0-36.0); MEAN CELL VOLUME 87.3 fl (80-96); MEAN PLT VOLUME 8.9 fl (7.5-11.1); MONO % 18.3 % (3.8-10.2); NEUT % 43.7 % (42.8-82.8); PLATELET COUNT 99 K/MM3 (134-434); RBC 4.22 M/mm3 (3.60-5.2); RDW 14.4 % (11.6-15.6); WHITE BLOOD COUNT 2.8 K/mm3 (4.0-10.0)
[2019-09-06 09:17] LABS: BLOOD UREA NITROGEN 11.1 mg/dL (7-18); CALCIUM 8.3 mg/dL (8.5-10.1); CREATININE 0.9 mg/dL (0.55-1.3); MAGNESIUM 2.2 mg/dL (1.8-2.4); POTASSIUM 3.8 mmol/L (3.5-5.1)
[2019-09-06] MEDS ORDERED: DEXTROSE 5%-WATER - 50 ML IVPB ONE (09:36)
[2019-09-06] MEDS ORDERED: cefTRIAXone SODIUM 1 GM VIAL ONE (09:36)
[2019-09-06] MEDS: amLODIPine BESYLATE 10 MG TABLET (FP) PO SCH (09:40)
[2019-09-06] MEDS: PANTOPRAZOLE 40 MG TABLET (FP) PO SCH (09:40)
[2019-09-06] MEDS: VALSARTAN 80 MG TABLET (UD) PO SCH (09:42)
[2019-09-06] MEDS: OMEGA-3 ACID ETHYL ESTERS (FATTY-ACIDS) 1 GM CAPSULE (FP) PO SCH (09:43)
[2019-09-06] MEDS: MONTELUKAST NA 10 MG TABLET PO SCH (09:43)
[2019-09-06] MEDS: CEFTRIAXONE 1 GM in DEXTROSE 5%-WATER - 50 ML IVPB SCH (09:43)
[2019-09-06] MEDS: BUDESONIDE/FORMETEROL FUMARATE 160/4.5 mcg INHALER IH SCH (09:44)
[2019-09-06] MEDS ORDERED: PT OWN MED DRAWER 7, Y5N ONE (10:01)
[2019-09-06] MEDS: FLUoxetine HCL 10 MG CAPSULE (FP) PO SCH (10:05)
[2019-09-06] MEDS: ASPIRIN 81 MG CHEWABLE TABLETS PO SCH (10:10)
[2019-09-06] MEDS: CALCIUM 500MG/VIT-D 200 UNITS COMBO TABLET (FP) PO SCH (10:14)
--- NOTE | 2019-09-06 12:29 | CONSULT ---
Consult - text type - Consultation Consultation Note: PODIATRY CONSULT: ATTEMPTED TO TALK TO PATIENT PATIENT REFUSES ALL COMMUNICATION AND STATES SHE WILL NOT ALLOW ME TO EXAM HER FEET I EXPLAIN IF THER EIS AN INFECTION IN THE DIGIT IT NEEDS TO BE ADDRESSED GIVEN DIABETIC STATUS CONTINUED TO REFUSE EXAMINATION AND TERMINATED CONVERSATION WITH ME WILL SIGN OFF PATIENT IS REFUSING ANY FORM OF PODIATRIC TREATMENT.
--- NOTE | 2019-09-06 15:04 | DS ---
Physical Exam: SUBJECTIVE: Patient seen and examined at the bedside. Patient stated that he felt well and is ready to go home. Stated that she has a small ulcer on her foot that is chronic. Denied any acute complaints of cp, sob, abd pain, n/v/c/d , dysuria, hematuria, frequency, urgency, problems voiding, fever, chills, headaches, numbness, tingling. OBJECTIVE: Vital Signs Period Temp Pulse Resp BP Sys/Stanton Pulse Ox Last 24 Hr 98.1 F-98.7 F 65-93 18-20 110-134/55-70 94 PHYSICAL EXAM GENERAL: The patient is awake, alert, and fully oriented, in no acute distress. EYES: PERRL, extraocular movements intact, sclera anicteric, conjunctiva clear. ENT: Oropharynx clear without exudates, moist mucous membranes. LUNGS: Breath sounds equal, coarse breath sounds throughout, no wheezes auscultated, no accessory muscle use. HEART: Regular rate and rhythm, S1, S2 without murmur, rub. ABDOMEN: Soft, non-tender, nondistended, normoactive bowel sounds, no guarding, no rebound, no masses. EXTREMITIES: 2+ pulses, warm, well-perfused, no edema. NEUROLOGICAL: Cranial nerves II through XII grossly intact. 5/5 muscle strength bilaterally upper and lower extremities. PSYCH: Normal mood, normal affect. SKIN: Warm, dry, normal turgor, no rashes or lesions noted LABS Laboratory Results - last 24 hr 09/05/19 09/06/19 09/06/19 17:17 05:54 07:20 WBC 2.8 L RBC 4.22 Hgb 12.1 Hct 36.8 MCV 87.3 MCH 28.7 MCHC 32.9 RDW 14.4 Plt Count 99 L D MPV 8.9 Absolute Neuts (auto) 1.2 L Neutrophils % 43.7 Lymphocytes % 36.0 D Monocytes % 18.3 H Eosinophils % 1.6 D Basophils % 0.4 Nucleated RBC % 0 Sodium Potassium Chloride Carbon Dioxide Anion Gap BUN Creatinine Est GFR (CKD-EPI)AfAm Est GFR (CKD-EPI)NonAf POC Glucometer 113 85 Random Glucose Calcium Magnesium 09/06/19 07:20 WBC RBC Hgb Hct MCV MCH MCHC RDW Plt Count MPV Absolute Neuts (auto) Neutrophils % Lymphocytes % Monocytes % Eosinophils % Basophils % Nucleated RBC % Sodium 137 Potassium 3.8 Chloride 101 Carbon Dioxide 28 Anion Gap 8 BUN 11.1 Creatinine 0.9 Est GFR (CKD-EPI)AfAm 71.98 Est GFR (CKD-EPI)NonAf 62.11 POC Glucometer Random Glucose 88 Calcium 8.3 L Magnesium 2.2 HOSPITAL COURSE: Boy Calderon is a 74 year old female with a past medical history of asthma, HTN, DM , uterine fibroids admitted for acute urinary retention. Patient was found to have urinary and fecal retention. Clement catheter was placed for urinary retention. Ct scan noted enlarged uterus with fibroids. Sealing Machine Operator was consulted and noted that the fibroids were not the cause of retention or constipation and there was no acute intervention necessary. The patient was started on a high fiber diet, given enemas, and started on a bowel regimen and the patient had several bowel movements. Patient's home medications included oxybutynin, solifenacin, and levoceterizine all possible causes of urinary retention and were stopped. Patient was given a voiding trial and was able to successfully void on her own. On CT scan patient was noted to have bilateral renal cortical cysts for which she was advised to follow up with nephrology. Patient was found to have a UTI and was started on ceftriaxone and is to complete a course of antibiotics outpatient. On CT scan the patient was noted to have dilated hepatic duct/CBD/pancreatic duct with small pancreatic pseudocysts. MRCP was done which showed a mildly distended gallbladder with slight prominence of the proximal common bile duct. No dilation of intrahepatic and pancreatic ducts. The patient was advised to follow up with her PCP and gastroenterology outpatient. CT chest was done which showed extensive chronic lung disease with upper lobe fibrosis, bronchiectasis, and calcifications. Patient was advised to follow up with pulmonology. Advised to get PFTs outpatient and CT chest in 3 months. Patient was found to have leukopenia, thrombocytopenia which was likely in the setting of her UTI, was started on antibiotics, and was advised to follow up with hematology. Patient was noted to have a foot lesion on her right foot but refused inpatient follow up of her foot. Was advised to follow up with outpatient podiatry. The patient was started on a bowel regimen and was advised to follow up with her PCP, telecommunications officer, research intern, stone finisher, research investigator, paperback machine operator, and manager commission. The patient was advised of the plan, was in agreement, and reiterated it. The patient was discharged in stable medical condition. Date of Admission:09/02/19 Date of Discharge: 09/06/19 Minutes to complete discharge: 35 Discharge Summary Problems reviewed: Yes Reason For Visit: DILATION OF COMMON BILE DUCT,ABD PAIN,DILA OF PANC Current Active Problems Asthma (Chronic) Bronchiectasis (Chronic) Interstitial lung disease (Chronic) Condition: Stable - Instructions Diet, Activity, Other Instructions: You were admitted due to your inability to have a bladder or bowel movement. You were given medication to help you have a bowel movement. A catheter was placed in order to help you void your urine and then you were trialed off of the catheter and were able to void your bladder on your own. A CT scan of your pelvis noted that you had some fibroids (masses) in your uterus which were not obstructing your bowel or bladder. You are encouraged to follow up with a stone finisher for these findings. A CT scan noted that you had some cysts in your kidneys and are encouraged to follow up with a research intern (kidney doctor ) for these findings. You were noted on the CT scan to have some enlargement of your liver and pancreas ducts. You had an MRCP (scan of your liver, gallbladder , and pancreas ducts) which showed that your gallbladder was enlarged and you had some enlargement of the bile ducts. You are advised to follow up with a telecommunications officer. Your chest CT scan showed that you have extensive lung disease. You are advised to follow up with a research investigator (lung doctor). You were found with low white blood cell counts in the hospital. You are advised to follow up with a paperback machine operator (blood doctor). MEDICATIONS STOP taking oxybutynin. STOP taking solifenacin. STOP taking levocetirazine. START taking Colace 100mg three times a day. START taking senna 2 tablets at nighttime. START taking Miralax 17gm as needed daily. START taking cefpodoxime 100mg twice a day for 3 more days. Your last dose will be on September 09. Continue to take all of your other home medications as prescribed. REFERRALS Please follow up with your primary care doctor, Dr. Henriquez, within 1 week. Please follow up with the stone finisher, Dr. Quach, within 1 week. If you would like a Polish speaking stone finisher, please refer to your primary care physician to refer you to one. Please follow up with the research intern, Dr. Tavarez, within 1 week. Please follow up with the telecommunications officer, Dr. De Paz, within 1 week. Please follow up with the pulmologist, Dr. Ng, within 1 week. Please follow up with the manager commission, Dr. Pitts, within 1 week. Please follow up with the paperback machine operator, Dr. Carroll, within 1 week. SPECIAL INSTRUCTIONS You will need to have a repeat CT scan of your chest in 3 months. You will need to have pulmonary function tests in the outpatient clinic. If you have any symptoms of difficulty urinating, difficulty moving your bowels , fevers, bloody stools, bloody urine, chest pain, shortness of breath, or any other general feelings of unwellness, please call 911 or go your nearest emergency room. Referrals: MD Martinez [Other] - 1 Week Guillermo Pitts MD [Staff Physician] - 1 Week Jose De Paz DO [Staff Physician] - 1 Week Sabino Quach MD [Staff Physician] - 1 Week Leann Carroll MD [Staff Physician] - Kishore Tavarez MD [Staff Physician] - 1 Week Nakul Ng MD, MD [Staff Physician] - 1 Week Disposition: HOME - Home Medications Comprehensive Discharge Medication List: Ambulatory Orders Albuterol Sulfate [Proair Hfa] 90 mcg IH TID 09/02/19 Amlodipine Besylate [Norvasc -] 10 mg PO DAILY 09/02/19 Aspirin [ASA -] 81 mg PO DAILY 09/02/19 Budesonide/Formeterol Fumarate [SYMBICORT 160/4.5mcg -] 2 puff IH BID 09/02/19 Calcium Carbonate/Vitamin D3 [Calcium 500-Vit D3 200 Tablet] 1 tablet PO BID Ergocalciferol [Vitamin D2] 50,000 unit PO WEEKLY 09/02/19 Fluoxetine HCl 10 mg PO DAILY 09/02/19 Icosapent Ethyl [Vascepa] 2 gm PO BID 09/02/19 Montelukast Na [Singulair -] 10 mg PO DAILY 09/02/19 Pantoprazole Sodium [Protonix -] 40 mg PO DAILY 09/02/19 Potassium Citrate [Potassium Citrate ER] 15 meq PO BID 09/02/19 Simvastatin 10 mg PO DAILY 09/02/19 Sodium Chloride 3 % [Sodium Chloride] 750 ml IH BID 09/02/19 Valsartan 80 mg PO DAILY 09/02/19 metFORMIN HCL [Metformin HCl] 500 mg PO DAILY 09/02/19 Docusate Sodium [Colace -] 100 mg PO TID #90 capsule 09/03/19 Polyethylene Glycol 3350 [Miralax 119 gm Btl -] 17 gm PO DAILY PRN #1 bottle Sennosides [Senna -] 2 tab PO HS #60 tablet 09/03/19 Cefpodoxime Proxetil [Vantin (Nf) -] 100 mg PO BID #6 tablet 09/06/19 Problem List - Problems (1) Asthma Code(s): J45.909 - UNSPECIFIED ASTHMA, UNCOMPLICATED (2) Bronchiectasis Code(s): J47.9 - BRONCHIECTASIS, UNCOMPLICATED (3) Interstitial lung disease Code(s): J84.9 - INTERSTITIAL PULMONARY DISEASE, UNSPECIFIED (4) Constipation Code(s): K59.00 - CONSTIPATION, UNSPECIFIED This patient is new to me today: No Emergency Visit: Yes ED Registration Date: 09/02/19 Care time: The patient presented to the Emergency Department on the above date and was hospitalized for further evaluation of their emergent condition. Critical Care patient: No - Discharge Referral Referred to [facility] Med P.C[facility] No
--- NOTE | 2019-09-06 15:36 | PN ---
Physical Exam: SUBJECTIVE: Patient seen and examined afebrile , no bleeding , no new complains OBJECTIVE: Vital Signs Period Temp Pulse Resp BP Sys/Stanton Pulse Ox Last 24 Hr 98.1 F-98.7 F 65-93 18-20 110-134/55-70 94 GENERAL:Ao3 in NAD HEAD: NC/At EYES: ISAIAS< EOMI sclera anicteric, conjunctiva clear. ENT: Moist mucous membranes.no mucositis , or oral thrush noted , throat erythema NECK: NC/AT , no lyphadenopathy , Breast : no masses palpated nodes: no submandibular , axillary or inguinal lymph nodes palpated LUNGS: scattered rhonchi. No wheezes, HEART: Regular rate and rhythm, normal S1 and S2 without murmur, rub or gallop. ABDOMEN: Soft, nontender, not distended, normoactive bowel sounds, no guarding, no rebound, LOWER EXTREMITIES: 2+ pulses, warm, well-perfused. No calf tenderness. No peripheral edema. NEUROLOGICAL: Cranial nerves II-XII intact. Normal speech. PSYCHIATRIC: Cooperative. Good eye contact. Appropriate mood and affect. SKIN: Warm, dry, normal turgor, Laboratory Results - last 24 hr 09/05/19 09/06/19 09/06/19 17:17 05:54 07:20 WBC 2.8 L RBC 4.22 Hgb 12.1 Hct 36.8 MCV 87.3 MCH 28.7 MCHC 32.9 RDW 14.4 Plt Count 99 L D MPV 8.9 Absolute Neuts (auto) 1.2 L Neutrophils % 43.7 Lymphocytes % 36.0 D Monocytes % 18.3 H Eosinophils % 1.6 D Basophils % 0.4 Nucleated RBC % 0 Sodium Potassium Chloride Carbon Dioxide Anion Gap BUN Creatinine Est GFR (CKD-EPI)AfAm Est GFR (CKD-EPI)NonAf POC Glucometer 113 85 Random Glucose Calcium Magnesium 09/06/19 07:20 WBC RBC Hgb Hct MCV MCH MCHC RDW Plt Count MPV Absolute Neuts (auto) Neutrophils % Lymphocytes % Monocytes % Eosinophils % Basophils % Nucleated RBC % Sodium 137 Potassium 3.8 Chloride 101 Carbon Dioxide 28 Anion Gap 8 BUN 11.1 Creatinine 0.9 Est GFR (CKD-EPI)AfAm 71.98 Est GFR (CKD-EPI)NonAf 62.11 POC Glucometer Random Glucose 88 Calcium 8.3 L Magnesium 2.2 Active Medications Generic Name Dose Route Start Last Admin Trade Name Freq PRN Reason Stop Dose Admin Acetaminophen 650 mg 09/02/19 03:39 Tylenol - PO Q4H PRN PAIN LEVEL 6-10 Albuterol Sulfate 1 amp 09/02/19 03:39 09/03/19 21:12 Ventolin 0.083% Nebulizer Soln - NEB 1 amp Q4H PRN Administration SHORT OF BREATH/WHEEZING Amlodipine Besylate 10 mg 09/03/19 10:00 09/06/19 09:40 Norvasc - PO 10 mg DAILY CHELO Administration Aspirin 81 mg 09/03/19 10:00 09/06/19 10:10 Asa - PO 81 mg DAILY CHELO Administration Atorvastatin Calcium 10 mg 09/02/19 22:00 09/05/19 22:10 Lipitor - PO 10 mg HS CHELO Administration Budesonide/Formoterol Fumarate 2 puff 09/02/19 22:00 09/06/19 09:44 Symbicort 160/4.5mcg - IH 2 puff BID CHELO Administration Calcium Carbonate/Cholecalciferol 1 tab 09/02/19 22:00 09/06/19 10:14 Os-Dallin 500+D - PO 1 tab BID CHELO Administration Docusate Sodium 100 mg 09/02/19 14:00 09/06/19 06:31 Colace - PO Not Given TID CHELO Fluoxetine HCl 10 mg 09/03/19 10:00 09/06/19 10:05 Prozac - PO 10 mg DAILY CHELO Administration Ceftriaxone Sodium 1 gm/ 50 mls @ 100 mls/hr 09/05/19 11:30 09/06/19 09:43 Dextrose IVPB 100 mls/hr DAILY CHELO Administration Ibuprofen 400 mg 09/04/19 09:03 09/04/19 09:41 Motrin - PO 400 mg Q6H PRN Administration PAIN LEVEL 1-5 Montelukast Sodium 10 mg 09/03/19 10:00 09/06/19 09:43 Singulair - PO 10 mg DAILY CHELO Administration [id number] Ethyl Esters 1 gm 09/02/19 22:00 09/06/19 09:43 Lovaza - PO 1 gm BID CHELO Administration Pantoprazole Sodium 40 mg 09/03/19 10:00 09/06/19 09:40 Protonix - PO 40 mg DAILY CHELO Administration Polyethylene Glycol 17 gm 09/02/19 13:28 Miralax (For Daily Use) - PO DAILY PRN CONSTIPATION Prochlorperazine Edisylate 2.5 mg 09/02/19 04:15 09/02/19 06:40 Compazine Injection - IVPB 2.5 mg Q4H PRN Administration NAUSEA AND/OR VOMITING Senna 2 tab 09/02/19 22:00 09/05/19 22:10 Senna - PO 2 tab HS CHELO Administration Valsartan 80 mg 09/03/19 10:00 09/06/19 09:42 Diovan - PO 80 mg DAILY CHELO Administration CBC, BMP 09/06/19 07:20 09/06/19 07:20 ASSESSMENT/PLAN: Boy Calderon is a 74 year old female with a past medical history of asthma, HTN, DM , uterine fibroids admitted for acute urinary retention.we were consulted for leukopenia and thrmobocytopenia # Leuckopenia send flow cytometry , fish and cytogenetics , follow up with result as out pt * UAand cx positive, started on ceftriaxone by Dr Ng , cont abx #Thrombocytopenia * Platelets 109....81 today, chronic, no active bleeding , monitor for now * transfuse if below 10 K * hold asa for plt below 50 K * chek B12/folate/TSH/fT4/LDH/ESR/CRP/protein studies/ * sullivan cx reviewed #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 , MRCP reviewed , Gi consulted #Bilateral renal cortical cysts, nephrology consulted #Asthma and interstitial lung disease Chest CT: chronic lung disease with upper lobe fibrosis, broncheictasis, and calcifications #Acute urinary retention and constipation #DM #HLD #HTN #DVT PPx #Uterine fibroid # Monitor lytes # Hypoglycemia - Gynecology consulted, recs appreciated, will follow up outpatient for fibroids - close follow up with PCPa nd Dr Noriega as out pt , repeat CBC within one week , follow up Flow results with Dr noriega Visit type - Emergency Visit Emergency Visit: Yes ED Registration Date: 09/02/19 Care time: The patient presented to the Emergency Department on the above date and was hospitalized for further evaluation of their emergent condition. - New Patient This patient is new to me today: No - Critical Care Critical Care patient: No - Discharge Referral Referred to [facility] Med P.C.: No ATTENDING PHYSICIAN STATEMENT I saw and evaluated the patient. I reviewed the resident's note and discussed the case with the resident. I agree with the resident's findings and plan as documented. SUBJECTIVE: OBJECTIVE: ASSESSMENT AND PLAN:
[2019-09-06] MEDS: POTASSIUM CITRATE 15 MEQ PO SCH (15:39)
[2019-09-06 18:07] LABS: FREE KAPPA,SERUM 63.4 mg/L (3.3-19.4)
--- NOTE | 2019-09-06 20:37 | PN ---
Teaching Attending Note Name of Resident: Jamie Cruz ATTENDING PHYSICIAN STATEMENT I saw and evaluated the patient. I reviewed the resident's note and discussed the case with the resident. I agree with the resident's findings and plan as documented. SUBJECTIVE: Feels well, no complaints. Tolerating oral intake, moving bowels. OBJECTIVE: Afebrile, Hemodynamically Stable. Last Vital Signs Temp Pulse Resp BP Pulse Ox 98.6 F 65 18 121/66 94 L 09/06/19 08:30 09/06/19 08:30 09/06/19 08:30 09/06/19 08:30 09/06/19 09:00 GENERAL: AAO x 3. Comfortable. HEART: S1, S2, SM LUNGS: bibasal fine crackles ABDOMEN: Soft, nontender. Bowel Sounds normal. EXTREMITIES: no edema, no calf tenderness. Laboratory Results - last 24 hr 09/05/19 09/06/19 09/06/19 06:15 05:54 07:20 WBC 2.8 L RBC 4.22 Hgb 12.1 Hct 36.8 MCV 87.3 MCH 28.7 MCHC 32.9 RDW 14.4 Plt Count 99 L D MPV 8.9 Absolute Neuts (auto) 1.2 L Neutrophils % 43.7 Lymphocytes % 36.0 D Monocytes % 18.3 H Eosinophils % 1.6 D Basophils % 0.4 Nucleated RBC % 0 Sodium Potassium Chloride Carbon Dioxide Anion Gap BUN Creatinine Est GFR (CKD-EPI)AfAm Est GFR (CKD-EPI)NonAf POC Glucometer 85 Random Glucose Calcium Magnesium Free Parkway LC, Quant 63.4 H Free Lambda LC, Quant 53.[address]/Lambda Ratio 1.18 09/06/19 07:20 WBC RBC Hgb Hct MCV MCH MCHC RDW Plt Count MPV Absolute Neuts (auto) Neutrophils % Lymphocytes % Monocytes % Eosinophils % Basophils % Nucleated RBC % Sodium 137 Potassium 3.8 Chloride 101 Carbon Dioxide 28 Anion Gap 8 BUN 11.1 Creatinine 0.9 Est GFR (CKD-EPI)AfAm 71.98 Est GFR (CKD-EPI)NonAf 62.11 POC Glucometer Random Glucose 88 Calcium 8.3 L Magnesium 2.[address] LC, Quant Free Lambda LC, Quant Free Parkway/Lambda Ratio Discharge Medications Medication Instructions Recorded Albuterol Sulfate [Proair Hfa] 90 mcg IH TID 09/02/19 Amlodipine Besylate [Norvasc -] 10 mg PO DAILY 09/02/19 Aspirin [ASA -] 81 mg PO DAILY 09/02/19 Budesonide/Formeterol Fumarate 2 puff IH BID 09/02/19 [SYMBICORT 160/4.5mcg -] Calcium Carbonate/Vitamin D3 1 tablet PO BID 09/02/19 [Calcium 500-Vit D3 200 Tablet] Ergocalciferol [Vitamin D2] 50,000 unit PO WEEKLY 09/02/19 Fluoxetine HCl 10 mg PO DAILY 09/02/19 Icosapent Ethyl [Vascepa] 2 gm PO BID 09/02/19 Montelukast Na [Singulair -] 10 mg PO DAILY 09/02/19 Pantoprazole Sodium [Protonix -] 40 mg PO DAILY 09/02/19 Potassium Citrate [Potassium 15 meq PO BID 09/02/19 Citrate ER] Simvastatin 10 mg PO DAILY 09/02/19 Sodium Chloride 3 % [Sodium 750 ml IH BID 09/02/19 Chloride] Valsartan 80 mg PO DAILY 09/02/19 metFORMIN HCL [Metformin HCl] 500 mg PO DAILY 09/02/19 Docusate Sodium [Colace -] 100 mg PO TID #90 capsule 09/03/19 Polyethylene Glycol 3350 [Miralax 17 gm PO DAILY PRN #1 bottle 09/03/19 119 gm Btl -] Sennosides [Senna -] 2 tab PO HS #60 tablet 09/03/19 Cefpodoxime Proxetil [Vantin (Nf) 100 mg PO BID #6 tablet 09/06/19 -] ASSESSMENT AND PLAN: 74 year old woman with a history of HTN, asthma, s/p appendectomy, presented to the ED with abdominal pain, constipation, vomiting, and difficulty urinating. 1. Abdominal pain with vomiting - secondary to constipation/urinary retention - resolved. No evidence of bowel obstruction. Continue Colace, Senna, Miralax as needed. 2. Urinary retention - Likely secondary to fecal retention and large uterine fibroid - resolved 3. Hypokalemia - repleted. 4. Uterine Fibroid - Outpatient PSYCHOLOGICAL OPERATIONS follow-up. 5. 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 on CT - MRCP shows mildly distended gallbladder with slight prominence of proximal CBD - Outpatient GI referral. 6. Bilateral renal cortical cysts - outpatient Urology follow up. 7. Asthma, likely interstitial lung disease Chest CT shows extensive chronic lung disease with upper lobe fibrosis, bronchiectasis, and calcifications suggestive of prior granulomatous disease Pulmonary consulted - Continue Symbicort Singulair. Pulm out-patient follow up. 8. Leukopenia, Thrombocytopenia - improving. ? sec to UTI. No evidence of sepsis. Urine Cx - LFNB. Treat with 5 days Cephalosporin total. Hematology follow up as out-patient. 9. SHERRI sec to dehydration, obstructive uropathy - improved. 10. HTN - Continue Diovan Norvasc 11. Hyperlipidemia - Continue Lipitor, Lovaza Medically stable for discharge with Pulm, GI, Gyne, Urology, and Hematology follow ups.
--- NOTE | 2019-09-09 14:54 | PATH ---
Surgical Pathology Report Patient Name: TONJA BENITEZ [facility]. Rec. #: [id number] /Age/Gender: 1945 (Age: 74) / F Account: [id number] Location: [address] [place] [address] Taken: 09/03/2019 Received: 09/05/2019 Reported: 09/09/2019 Physicians: Leann Carroll M.D. Specimen(s) Received PERIPHERAL BLOOD FOUR GREEN TOP TUBES Clinical History Leukocytopenia Final Diagnosis Comprehensive Flow Panel performed and interpreted at [place], [place] shows the following: Interpretation: There is no evidence of B or T-cell proliferative disorders or increased blasts. Slight polytypic plasmacytosis.. Additional Tests: Cytogenetics, FISH Phenotype: The CD34+ myeloblasts are 0.1%. Granulocytes are 75% of total cells. Monocytes are 10% of total cells. There is no overt abnormal myeloid antigen expression. The B-cells (1.5% of total) appear polytypic. The T-cells (8% of total) show no sullivan T-cell antigenic deletion. The CD4:CD8 ratio is 2:1. The T-LGLs are 0.6%, the NK cells are 3.9% of total events. The plasma cells (1% of total) appear polytypic. See [facility] report ([id number]) for additional details. MYELODYSPLASIA FISH PANEL performed and interpreted at [place], [place] shows the following: INTERPRETATION: No evidence of deletion 5q or monosomy 5 is present. No evidence of deletion 7q or monosomy 7 is present. No evidence of trisomy 8 (+8) is present. No evidence of deletion 13q14.2 is present. No evidence of a rearrangement of 11q23. No evidence of a deletion of the p53 (17p13) locus. No evidence of deletion 20q12 is present. Comments: Correlation with pending cytogenetics ([id number]) is recommended. Seven multiplex probe stain procedures were performed. See [facility] report ([id number]) for additional details. Electronically Signed Jenise Bartlett M.D. Addendum Reported: 09/12/2019 Addendum Diagnosis CYTOGENETIC KARYOTYPE ANALYSIS performed and interpreted at [facility] shows the following: Test Results: Tissue Culture Failure INTERPRETATION: This unstimulated peripheral blood specimen did not produce any analyzable metaphase cells and, therefore, chromosome analysis is not possible. A bone marrow aspirate, when clinically appropriate, is recommended. See [facility] report for additional details ([id number]). Jenise Bartlett M.D. Gross Description Received peripheral blood in four green top tubes. Sent to [facility] for analysis. JEAN/09/09/2019 miranda/09/09/2019
[2019-09-09 15:08] LABS: TOTAL PROTEIN, URINE 148.2 mg/dL (Not Estab.)
== END 2019-09-06 17:25 | disposition home or self-care (01) | DRG 392 ==
LOC: JER 19:53 → JERBED 09-02 00:11 → J5S 09-02 05:41
PROVIDERS: ADMIT Internal Medicine
DX: K59.00 Constipation, unspecified (principal); J84.9 Interstitial pulmonary disease, unspecified; N17.9 Acute kidney failure, unspecified; K86.3 Pseudocyst of pancreas; R33.8 Other retention of urine; E87.6 Hypokalemia; D69.6 Thrombocytopenia, unspecified; J47.9 Bronchiectasis, uncomplicated; D25.9 Leiomyoma of uterus, unspecified; N28.1 Cyst of kidney, acquired; J45.909 Unspecified asthma, uncomplicated; D72.819 Decreased white blood cell count, unspecified; E86.0 Dehydration; E78.5 Hyperlipidemia, unspecified; N13.9 Obstructive and reflux uropathy, unspecified; E11.9 Type 2 diabetes mellitus without complications; N18.3 Chronic kidney disease, stage 3 (moderate); I12.9 Hypertensive chronic kidney disease with stage 1 through stage 4 chronic kidney disease, or unspecified chronic kidney disease
CPT/HCPCS: 36415; 71045-TC-FY; 71260-TC; 74177-TC; 74181-TC; 80048; 80053; 81003; 82607; 82747; 82962; 83036; 83605; 83615; 83690; 83735; 83883; 84100; 84155; 84156; 84157; 84165; 84439; 84443; 84484; 85014; 85025; 85651; 86140; 86850; 86900; 86901; 87040; 87086; 87186; 88300-TC; 93005; 93010; 94640; 97116-GP; 97161-GP; 99283-25; J0131; J1644; J7030; Q9967